=== PATIENT | female | born 1930 | race Caucasian/White ===

== ENCOUNTER 2017-08-27 17:38 | Emergency (ER) | payer OTHER ==
[2017-08-27] MEDS ORDERED: KETOROLAC 30 MG/ML INJ ONE (19:06)
[2017-08-27] MEDS ORDERED: ONDANSETRON 4 MG/2 ML VIAL ONE (19:06)
[2017-08-27] MEDS ORDERED: DEXAMETHASONE 10 MG/ML VIAL ONE (19:07)
[2017-08-27] MEDS ORDERED: DIAZEPAM 5 MG TABLET ONE (19:08)
[2017-08-27] MEDS ORDERED: FENTANYL CITR 100 MCG/2 ML ONE (19:09)
--- NOTE | 2017-08-27 19:26 | RAD REPORT ---
EXAM DESCRIPTION: CT - Spine Lumbar Wo Con - 08/27/2017 7:09 pm CLINICAL HISTORY: Radiculopathy. COMPARISON: None. TECHNIQUE: Axial noncontrast CT imaging of the lumbar spine was performed with coronal and sagittal re-formatted images. All CT scans are performed using dose optimization technique as appropriate and may include automated exposure control or mA/KV adjustment according to patient size. FINDINGS: No acute lumbar spine fracture seen. No aggressive marrow pattern or malalignment. Paraspinal tissues are normal in thickness. No paraspinal abscess or hematoma seen. Moderate lower lumbar degenerative changes present with severe central canal stenosis suspected at L4 -5. Focal infrarenal aortic aneurysm measuring 3.2 cm is noted. IMPRESSION: No acute lumbar spine finding. Severe central canal stenosis suspected at L4-5.
[2017-08-27 19:38] LABS: Absolute Monocytes 0.7 K/uL (0.1-1.3); Absolute Neutrophil 7.2 K/uL (1.8-8.0); Basophils % 0.2 % (0-1.3); Eosinophils % 1.3 % (0-4.4); Hematocrit 34.9 % (36.0-45.0); Lymphocytes % 19.7 % (15.3-44.8); MCH 31.6 pg (27.0-35.0); MPV 8.3 fL (7.6-11.3); Monocytes % 6.5 % (3.3-12.3); RBC Red Blood Cell Count 3.84 M/uL (3.86-4.86)
[2017-08-27 19:45] LABS: Potassium 3.8 mEq/L (3.6-5.0)
[2017-08-27 19:49] LABS: Albumin 3.6 g/dL (3.2-5.5); Bilirubin Total 0.5 mg/dL (0.3-1.2)
--- NOTE | 2017-08-27 20:06 | EDPHYS ---
Physician Documentation [facility] Name: Annabelle Pena Age: 86 yrs Sex: Female : 1930 Arrival Date: 08/27/2017 Time: 17:41 Bed 16 Private MD: out of town, doctor ED Physician Benjamin Montalvo HPI: 08/27 19:00 This 86 yrs old Female presents to ER via Ambulatory with complaints of Back harry Pain, Nausea. 19:00 The patient presents with pain that is acute. The symptoms are located in the low back. harry Onset: The symptoms/episode began/occurred 2 day(s) ago. The pain radiates to the right low back. Associated signs and symptoms: The patient has no apparent associated signs or symptoms. The problem was sustained from unknown cause. Modifying factors: The patient symptoms are alleviated by remaining still, rest. Severity of symptoms: At their worst the symptoms were. The patient has not experienced similar symptoms in the past. Historical: - Allergies: 17:58 No Known Allergies; ch - Home Meds: 17:58 momantine hcl 10 mg once daily [Active]; atorvastatin 20 mg oral tab 1 tab once daily [Active]; levothyroxine 75 mcg tab 1 tab once daily [Active]; Plavix 75 mg Oral tab 1 tab once daily [Active]; duloxetine 60 mg oral cpDR 1 cap once daily [Active]; trazodone 100 mg Oral tab 1 tab nightly [Active]; - PMHx: 17:58 Hypothyroidism; Hyperlipidemia; "sleep issues"; Myocardial infarction; ch - PSHx: 17:58 Heart stents; two stents in heart; 17:59 Appendectomy; carpel tunnel; tumor removed from ovary; - Immunization history:: Adult Immunizations up to date. - Social history:: Smoking status: Patient/guardian denies using tobacco. - Family history:: not pertinent. ROS: 19:00 Constitutional: Negative for fever, chills, and weight loss, Eyes: Negative for injury, harry pain, redness, and discharge, ENT: Negative for injury, pain, and discharge, Neck: Negative for injury, pain, and swelling, Cardiovascular: Negative for chest pain, palpitations, and edema, Respiratory: Negative for shortness of breath, cough, wheezing, and pleuritic chest pain, Abdomen/GI: Negative for abdominal pain, nausea, vomiting, diarrhea, and constipation, : Negative for injury, bleeding, discharge, and swelling, MS/Extremity: Negative for injury and deformity, Skin: Negative for injury, rash, and discoloration, Neuro: Negative for headache, weakness, numbness, tingling, and seizure, Psych: Negative for depression, anxiety, suicide ideation, homicidal ideation, and hallucinations, Allergy/Immunology: Negative for hives, rash, and allergies, Endocrine: Negative for neck swelling, polydipsia, polyuria, polyphagia, and marked weight changes, Hematologic/Lymphatic: Negative for swollen nodes, abnormal bleeding, and unusual bruising. 19:00 Back: Positive for decreased range of motion, pain at rest, pain with movement, radiated pain, of the lumbar area and right low back. 19:03 Skin: Negative for rash. harry Exam: 19:00 Constitutional: This is a well developed, well nourished patient who is awake, alert, harry and in no acute distress. Head/Face: Normocephalic, atraumatic. Eyes: Pupils equal round and reactive to light, extra-ocular motions intact. Lids and lashes normal. Conjunctiva and sclera are non-icteric and not injected. Cornea within normal limits. Periorbital areas with no swelling, redness, or edema. ENT: Nares patent. No nasal discharge, no septal abnormalities noted. Tympanic membranes are normal and external auditory canals are clear. Oropharynx with no redness, swelling, or masses, exudates, or evidence of obstruction, uvula midline. Mucous membranes moist. Neck: Trachea midline, no thyromegaly or masses palpated, and no cervical lymphadenopathy. Supple, full range of motion without nuchal rigidity, or vertebral point tenderness. No Meningismus. Chest/axilla: Normal chest wall appearance and motion. Nontender with no deformity. No lesions are appreciated. Cardiovascular: Regular rate and rhythm with a normal S1 and S2. No gallops, murmurs, or rubs. Normal PMI, no JVD. No pulse deficits. Respiratory: Lungs have equal breath sounds bilaterally, clear to auscultation and percussion. No rales, rhonchi or wheezes noted. No increased work of breathing, no retractions or nasal flaring. Abdomen/GI: Soft, non-tender, with normal bowel sounds. No distension or tympany. No guarding or rebound. No evidence of tenderness throughout. Female : Normal external genitalia. Skin: Warm, dry with normal turgor. Normal color with no rashes, no lesions, and no evidence of cellulitis. MS/ Extremity: Pulses equal, no cyanosis. Neurovascular intact. Full, normal range of motion. Neuro: Awake and alert, GCS 15, oriented to person, place, time, and situation. Cranial nerves II-XII grossly intact. Motor strength 5/5 in all extremities. Sensory grossly intact. Cerebellar exam normal. Normal gait. Psych: Awake, alert, with orientation to person, place and time. Behavior, mood, and affect are within normal limits. 19:00 Back: pain, that is mild, ROM is painful, normal spinal alignment noted, CVA tenderness, is absent, vertebral tenderness, is not appreciated, muscle spasm, is appreciated in the left low back and right low back. Vital Signs: 17:59 BP 136 / 86; Pulse 74; Resp 18; Temp 97.7; Pulse Ox 99% on R/A; Weight 63.5 kg; Height ch 5 ft. 2 in. (157.48 cm); Pain 9/10; 19:24 BP 143 / 60; Pulse 70; Resp 17; Pulse Ox 98% on R/A; bs1 21:13 BP 152 / 48; Pulse 70; Resp 17; Temp 98(O); Pulse Ox 100% on R/A; Pain 5/10; bs1 17:59 Body Mass Index 25.61 (63.50 kg, 157.48 cm) [facility]: 18:24 Patient medically screened. [facility] 19:03 Data reviewed: vital signs, nurses notes, lab test result(s), EKG, radiologic studies, [facility] CT scan. 08/27 18:55 Order name: CBC with Diff; Complete Time: 19:54 [facility] 08/27 18:55 Order name: Comprehensive Metabolic Panel; Complete Time: 19:54 [facility] 08/27 18:55 Order name: Urine Culture [facility] 08/27 18:55 Order name: CT Lumbar Spine Wo Con; Complete Time: 19:33 [facility] 08/27 20:10 Order name: Urine Dipstick--Ancillary (enter results) em1 08/27 18:55 Order name: Urine Dipstick-Ancillary (obtain specimen); Complete Time: 20:09 harry Administered Medications: 19:28 Drug: TORadol 30 mg Route: IVP; Site: left upper arm; bs1 21:05 Follow up: Response: No adverse reaction bs1 19:28 Drug: fentaNYL (PF) 25 mcg Route: IVP; Site: left upper arm; bs1 21:04 Follow up: Response: No adverse reaction bs1 19:28 Drug: Zofran 4 mg Route: IVP; Site: left upper arm; bs1 21:04 Follow up: Response: No adverse reaction bs1 19:28 Drug: Decadron - Dexamethasone 10 mg Route: IVP; Site: left upper arm; bs1 21:04 Follow up: Response: No adverse reaction bs1 19:30 Drug: Valium 2 mg Route: PO; bs1 21:03 Follow up: Response: No adverse reaction bs1 20:26 Drug: fentaNYL (PF) 25 mcg Route: IVP; Site: left upper arm; bs1 21:04 Follow up: Response: No adverse reaction bs1 20:58 Drug: Rocephin - (cefTRIAXone) 1 grams Route: IVPB; Infused Over: 30 mins; Site: left bs1 upper arm; 21:02 Follow up: IV Status: Completed infusion bs1 20:58 Drug: Cipro 500 mg Route: PO; bs1 21:03 Follow up: Response: No adverse reaction bs1 Disposition: 08/27/17 20:05 Discharged to Home. 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 - Condition is Stable. - Discharge Instructions: Back Pain, Adult, Chronic Back Pain, Musculoskeletal Pain, Sciatica, Back Injury Prevention, [id number], Back Pain, Adult, [id number]. - Prescriptions for Tylenol- Codeine #3 300-30 mg Oral Tablet - take 1 tablet by ORAL route every 4 days As needed; 20 tablet. Valium 2 mg Oral Tablet - take 1 tablet by ORAL route every 8 hours As needed; 20 tablet. Medrol (Ben) 4 mg Oral Tablets, Dose Pack - take 1 tablet by ORAL route as directed - follow package instructions; 1 packet. Motrin IB 200 mg Oral Tablet - take 1 tablet by ORAL route every 6 hours As needed as needed with food; 20 tablet. Cipro 250 mg Oral Tablet - take 1 tablet by ORAL route every 12 hours; 14 tablet. - Medication Reconciliation Form, Thank You Letter, Antibiotic Education, Prescription Opioid Use form. - Follow up: Private Physician; When: 2 - 3 days; Reason: Recheck today's complaints, Continuance of care, Re-evaluation by your physician. Follow up: Ulysses Harvey; When: 2 - 3 days; Reason: Recheck today's complaints, Re-evaluation by your physician. Follow up: Chandana Bullard; When: 5 - 6 days; Reason: Recheck today's complaints, Re-evaluation by your physician. - Problem is new. - Symptoms have improved. Signatures: Dispatcher [employer] EDShani Gaspar, RN RN Benjamin Madrid MD MD cha Salazar, Brittany RN RN bs1
--- NOTE | 2017-08-27 20:06 | ER ---
Nurse's Notes [facility] Name: Annabelle Pena Age: 86 yrs Sex: Female : 1930 Arrival Date: 08/27/2017 Time: 17:41 Bed 16 Private MD: out of town, doctor Diagnosis: Low back pain;Sciatica, right side;Spinal stenosis, lumbar region;Aneurysm of aorta in diseases classified elsewhere-3.4cm, infrarenal;Cystitis Presentation: 08/27 17:52 Presenting complaint: Patient states: R sided "siatica pain" for the past week. hurts to walk now. Transition of care: patient was not received from another setting of care. Onset of symptoms was August 20, 2017. Initial Sepsis Screen: Does the patient meet any 2 criteria? No. Patient's initial sepsis screen is negative. Does the patient have a suspected source of infection? No. Patient's initial sepsis screen is negative. Care prior to arrival: ezequiel lloyd. 17:52 Method Of Arrival: Ambulatory 17:52 Acuity: RAQUEL 4 Triage Assessment: 17:59 General: Appears in no apparent distress. uncomfortable, Behavior is calm, cooperative, ch appropriate for age. Pain: Complains of pain in right gluteus ghazala Pain radiates to right leg. Musculoskeletal: Capillary refill < 3 seconds, in bilateral fingers. toes. Historical: - Allergies: 17:58 No Known Allergies; - Home Meds: 17:58 momantine hcl 10 mg once daily [Active]; atorvastatin 20 mg oral tab 1 tab once daily [Active]; levothyroxine 75 mcg tab 1 tab once daily [Active]; Plavix 75 mg Oral tab 1 tab once daily [Active]; duloxetine 60 mg oral cpDR 1 cap once daily [Active]; trazodone 100 mg Oral tab 1 tab nightly [Active]; - PMHx: 17:58 Hypothyroidism; Hyperlipidemia; "sleep issues"; Myocardial infarction; - PSHx: 17:58 Heart stents; two stents in heart; ch 17:59 Appendectomy; carpel tunnel; tumor removed from ovary; ch - Immunization history:: Adult Immunizations up to date. - Social history:: Smoking status: Patient/guardian denies using tobacco. - Family history:: not pertinent. Screenin:06 Abuse screen: Denies threats or abuse. Nutritional screening: No deficits noted. rb1 Tuberculosis screening: No symptoms or risk factors identified. Fall Risk None identified. Assessment: 18:06 General: Appears uncomfortable, Behavior is calm, cooperative, Denies fever. Pain: rb1 Complains of pain in right low back Pain radiates to right leg Pain currently is 10 out of 10 on a pain scale. Pain began a week and half ago. Neuro: Level of Consciousness is awake, alert, obeys commands, Oriented to person, place, time, situation. Cardiovascular: Capillary refill < 3 seconds is brisk in bilateral fingers. Respiratory: Airway is patent Respiratory effort is even, unlabored, Respiratory pattern is regular, symmetrical. GI: No signs and/or symptoms were reported involving the gastrointestinal system. : No signs and/or symptoms were reported regarding the genitourinary system. Derm: Skin is pink, warm \\T\\ dry. Musculoskeletal: Range of motion: intact in all extremities. 19:10 Reassessment: Report received from TAYLOR Otto. bs1 19:10 General: Appears uncomfortable, Behavior is cooperative, anxious. Pain: Complains of bs1 pain in lumbar area and right low back and right leg and buttocks and right gluteus ghazala Pain radiates to right leg. Neuro: Level of Consciousness is awake, alert, obeys commands, Oriented to person, place, time, situation. Cardiovascular: Denies chest pain, lightheadedness, palpitations, shortness of breath, Heart tones S1 S2 Capillary refill < 3 seconds. Respiratory: Airway is patent Respiratory effort is even, unlabored, Respiratory pattern is regular, symmetrical, Breath sounds are clear bilaterally. GI: No signs and/or symptoms were reported involving the gastrointestinal system. Derm: Skin is pink, warm \\T\\ dry. Musculoskeletal: Range of motion: limited in right leg. 20:00 Reassessment: No changes from previously documented assessment. Patient and/or family bs1 updated on plan of care and expected duration. Pain level reassessed. Patient is alert, oriented x 3, equal unlabored respirations, skin warm/dry/pink. Patient c/o pain in back/right leg. 21:12 Reassessment: Patient appears in no apparent distress at this time. Patient and/or bs1 family updated on plan of care and expected duration. Pain level reassessed. Patient is alert, oriented x 3, equal unlabored respirations, skin warm/dry/pink. Patient states feeling better. Vital Signs: 17:59 BP 136 / 86; Pulse 74; Resp 18; Temp 97.7; Pulse Ox 99% on R/A; Weight 63.5 kg; Height 5 ft. 2 in. (157.48 cm); Pain 9/10; 19:24 BP 143 / 60; Pulse 70; Resp 17; Pulse Ox 98% on R/A; bs1 21:13 BP 152 / 48; Pulse 70; Resp 17; Temp 98(O); Pulse Ox 100% on R/A; Pain 5/10; bs1 17:59 Body Mass Index 25.61 (63.50 kg, 157.48 cm) ED Course: 17:41 Patient arrived in ED. mr 17:42 out of town, doctor is Private Physician. mr 17:54 Triage completed. 17:59 Arm band placed on left wrist. Patient placed in an exam room, on a stretcher. 18:06 Clarita Morin, TAYLOR is Primary Nurse. rb1 18:06 Patient has correct armband on for positive identification. Bed in low position. Call rb1 light in reach. pt. prefers to sit in the wheelchair. Pulse ox on. NIBP on. 18:24 Benjamin Montalvo MD is Attending Physician. [facility] 19:00 Report given to TAYLOR Hernandez. rb1 19:[address] via wheelchair. sw 19:08 CT completed. Patient tolerated procedure well. Patient moved back from CT. sw 19:10 CT Lumbar Spine Wo Con In Process Unspecified. EDMS 20:05 Ulysses Harvey MD is Referral Physician. harry 20:05 Chandana Bullard MD is Referral Physician. harry 21:12 No provider procedures requiring assistance completed. IV discontinued, bleeding bs1 controlled, No redness/swelling at site. Pressure dressing applied. Administered Medications: 19:28 Drug: TORadol 30 mg Route: IVP; Site: left upper arm; bs1 21:05 Follow up: Response: No adverse reaction bs1 19:28 Drug: fentaNYL (PF) 25 mcg Route: IVP; Site: left upper arm; bs1 21:04 Follow up: Response: No adverse reaction bs1 19:28 Drug: Zofran 4 mg Route: IVP; Site: left upper arm; bs1 21:04 Follow up: Response: No adverse reaction bs1 19:28 Drug: Decadron - Dexamethasone 10 mg Route: IVP; Site: left upper arm; bs1 21:04 Follow up: Response: No adverse reaction bs1 19:30 Drug: Valium 2 mg Route: PO; bs1 21:03 Follow up: Response: No adverse reaction bs1 20:26 Drug: fentaNYL (PF) 25 mcg Route: IVP; Site: left upper arm; bs1 21:04 Follow up: Response: No adverse reaction bs1 20:58 Drug: Rocephin - (cefTRIAXone) 1 grams Route: IVPB; Infused Over: 30 mins; Site: left bs1 upper arm; 21:02 Follow up: IV Status: Completed infusion bs1 20:58 Drug: Cipro 500 mg Route: PO; bs1 21:03 Follow up: Response: No adverse reaction bs1 Outcome: 20:05 Discharge ordered by MD. mcdonald 21:12 Discharged to home ambulatory, with family. bs1 21:12 Condition: stable 21:12 Discharge instructions given to patient, Instructed on discharge instructions, follow up and referral plans. medication usage, Demonstrated understanding of instructions, follow-up care, medications, Prescriptions given X 4. 21:24 Patient left the ED. bs1 Signatures: Dispatcher [employer] EDMS Shani Ortiz, RN Benjamin Merino ch, MD MD cha Rivera, Maria mr MelvinRachel Rebecca, RN RN rb1 Salazar, Brittany, RN RN bs1 Corrections: (The following items were deleted from the chart) 19:09 19:01 Patient moved to [place] via stretcher. gianfranco medel
[2017-08-27] MEDS ORDERED: CIPROFLOXACIN HCL 500 MG TAB ONE (20:51)
[2017-08-27] MEDS ORDERED: CEFTRIAXONE/SWI 1gm 1 GM/10 ML SYR ONE (20:52)
[2017-08-27 20:53] LABS: Urine Blood NEGATIVE (NEG); Urine Glucose NEGATIVE (NEG); Urine Protein NEGATIVE (NEG)
[2017-08-27 21:42] VITALS: BP 152/48; TEMP 98; O2SAT 100
== END 2017-08-27 21:24 | disposition home or self-care (01) ==
LOC: ER 17:38
DX: M54.31 Sciatica, right side (principal); M48.061 Spinal stenosis, lumbar region without neurogenic claudication; N30.90 Cystitis, unspecified without hematuria; I79.0 Aneurysm of aorta in diseases classified elsewhere; E78.5 Hyperlipidemia, unspecified; E03.9 Hypothyroidism, unspecified; I25.2 Old myocardial infarction; Z79.01 Long term (current) use of anticoagulants; Z95.818 Presence of other cardiac implants and grafts
CPT/HCPCS: 36415; 72131; 80053; 81003; 85025; 87086; 87088; 96374; 96375; 99284; J0696; J1100; J2405; J3010

== ENCOUNTER 2017-11-08 08:13 | Emergency (ER) | payer OTHER ==
--- OUTSIDE RECORDS SUMMARY | 2017-11-08 08:16 | XMS REPORT | Continuity of Care Document ---
:1930 Author Organization Interface Problems Problem Status Onset Classification Date Comments Source Date Reported Encounter for 07/06/19 10/04/2017 OPID The screening 18 [place] mammogram for malignant neoplasm of breast Z13.820 - Active 06/20/19 OPID The ENCOUNTER FOR 18 [place] SCREENING FOR OS Discharge 08/11/19 08/12/2014 The Diagnosis: Dizzy 15 [place] NAUSEA/ DIZZINESS Active 08/10/19 The 15 [place] Encounter for 10/04/2017 OPID The screening for [place] osteoporosis Loss of memory Active Problem 10/04/2017 Medical Group, OPID [place] Dysuria Active Problem 10/04/2017 Medical Group, OPID [place] History of CVA Active Problem 10/04/2017 Medical (<span Group, ID="[id number]" OPID The >Confirmed</span> [place] ) History of [place] Active Problem 10/04/2017 Medical (<span Group, ID="[id number]" OPID The >Confirmed</span> [place] ) Hyperlipemia Active Problem 10/04/2017 Medical Group, OPID [place] Hypothyroidism Active Problem 10/04/2017 Medical Group, OPID [place] Insomnia Active Problem 10/04/2017 Medical Group, OPID [place] Mitral valve Active Problem 10/04/2017 Medical disease Group, OPID [place] Psoriasis Active Problem 10/04/2017 Medical Group, OPID [place] Medications Medication Details Route Status Patient Ordering Order Source Instructions Provider Date predniSONE 20 mg 20 mg=1 tab, Active 08/12/ Medical oral tablet PO, Daily, X 2018 Group 5 day, # 5 tab, 0 Refill(s), Pharmacy: [facility]/pharmacy #[id number] Ciprofloxacin 500 mg=1 Active 08/12/ Medical 500 MG Oral tab, PO, 2018 Group Tablet [Cipro] Q12H, X 7 day, # 14 tab, 0 Refill(s), Pharmacy: [facility]/pharmacy #[id number] Ciprofloxacin 3 2 drp, BOTH No Longer Medical MG/ML Ophthalmic EYES, Q4H, X Active 2018 Group Solution 10 day, # 5 mL, 0 Refill(s), Pharmacy: [facility]/pharmacy #[id number] Trazodone See Active Medical Hydrochloride Instructions 2018 Group 100 MG Oral , TAKE 1 Tablet TABLET AT BEDTIME, # 90 tab, 1 Refill(s), Pharmacy: [facility] memantine 10 mg 10 mg=1 tab, Active Medical oral tablet PO, BID, # 2018 Group 180 tab, 0 Refill(s), Pharmacy: [facility] Mail Delivery levothyroxine 75 See Active Medical mcg (0.075 mg) Instructions 2018 Group oral tablet , TAKE 1 TABLET BY MOUTH EVERY DAY, # 90 tab, 1 Refill(s), Pharmacy: [facility] DULoxetine 60 mg 60 mg=1 cap, Active Medical oral delayed PO, Daily, # 2018 Group release capsule 90 cap, 1 Refill(s), Pharmacy: [facility] Mail Delivery clopidogrel 75 See Active Medical mg oral tablet Instructions 2018 Group , TAKE 1 TABLET BY MOUTH EVERY DAY, # 90 tab, 1 Refill(s), Pharmacy: [facility] Mail Delivery atorvastatin 20 See Active Medical mg oral tablet Instructions 2018 Group , TAKE 1 TABLET AT BEDTIME, # 90 tab, 1 Refill(s), Pharmacy: [facility] Delivery Ondansetron 4 MG 4 mg=1 tab, Active The Disintegrating PO, BID, PRN 2014[place] Tablet [Zofran] Nausea and Vomiting, Dissolve tab under tongue, # 10 tab, 0 Refill(s)Spe cial Instructions : Dissolve tab under tongue Meclizine 12.5 mg=1 Active The Hydrochloride tab, PO, 2014[place] 12.5 MG Oral TID, PRN Tablet Dizziness, # [Antivert] 30 tab, 0 Refill(s) Zofran ODT 4 mg, 1 tab, Inactive The Route: PO, 2014 Drug form: TABDIS, ONCE, Dosing Weight 62.273, kg, Priority: STAT, Start date: 08/10/14 0:14:00, Stop date: 08/10/14 0:14:00Notes : (Same as: Zofran ODT) Meclizine 25 mg, 1 Inactive The tab, Route: 2014 [place] PO, Drug form: TAB, ONCE, Dosing Weight 62.273, kg, Priority: STAT, Start date: 08/10/14 0:13:00, Stop date: 08/10/14 0:13:00Notes : (Same as: Antivert) Meclizine 25 mg, 1 No Longer The tab, Route: Active 2014 [place] PO, Drug form: TAB, ONCE, Dosing Weight 62.273, kg, Priority: STAT, Start date: 08/09/14 23:11:00, Stop date: 08/09/14 23:11:00Note s: (Same as: Antivert) Zofran 4 mg, 2 mL, No Longer The Route: IVP, Active 2014 [place] Drug form: INJ, ONCE, Dosing Weight 62.273, kg, Priority: STAT, Start date: 08/09/14 23:11:00, Stop date: 08/09/14 23:11:00Note s: (Same as: Zofran) MEDICATION WASTE Product Size: 4 mg Product Wasted: ___ mg Allergies, Adverse Reactions, Alerts Substance Category Reaction Severity Reaction Status Date Comments Source type Reported NKDA Assertion Drug Active OPID allergy [place] Immunizations Immunization Date Given Site Status Last Updated Comments Source Results Order Name Results Value Reference Date Interpretation Comments Source Range Bone Bone Density 06/28 - OPID Density DXA Dual - The DXA Dual [facility] BONE DENSITY ASSESSMENT: 06/28/2017 Read by: Tamanna Walker MD Dictated Date/time: 07/02/17 15:32 Electronically Signed by: Tamanna Walker MD 07/02/17 15:32 FINAL REPORT CLINICAL DATA: Z13.820/Screening For Osteoporosis. Z13.820/Screening For Osteoporosis Joel Pena 1930 RISK FACTORS: race. FINDINGS: Bone density evaluation was performed 06/28/2017 on the right femur neck using a Hologic unit. The BMD average for the exam is 0.849 g/cm2. The T-score is 0.01 and the Z-score is 2.50. This matches th e World Health Organization's criteria for normal bone density and places the patient within normal limits of fracture risk. An additional bone density evaluation was performed 06/28/2017 on the left femur neck using a Hologic unit. The BMD average for the exam is 0.871 g/cm2. The T-score is 0.20 and the Z-score is 2.70. Th is matches the World Health Organization's criteria for normal bone density and places the patient within normal limits of fracture risk. An additional bone density evaluation was performed 06/28/2017 on the right total femur area using a Hologic unit. The BMD average for the exam is 0.980 g/cm2. The T-score is 0.30 and the Z-score is 2. 60. This matches the World Health Organization's criteria for normal bone density and places the patient within normal limits of fracture risk. An additional bone density evaluation was performed 06/28/2017 on the left total femur area using a Hologic unit. The BMD average for the exam is 0.871 g/ cm2. The T-score is 0.20 and the Z-score is 2.7 0. This matches the World Health Organization's criteria for normal bone density and places the patient within normal limits of fracture risk. An additional bone density evaluation was performed 06/28/2017 on the AP L1 -L3 region of spine using a Hologic unit. The BMD average for the exam is 0.904 g/cm2. The T-score is -1.00 and the Z-score is 1.80. This matches the World Health Organization's criteria for normal bone density and places the patient within normal limits of fracture risk. L4 vertebral body was excluded as statistical outlier. IMPRESSION: BONE DENSITY WITHIN NORMAL LIMITS Patient is at normal risk for fracture. The FRAX (Fracture Risk Assessement Tool) was not reported because all T- scores for spine total, hip total, and femoral neck are at or above -1, within normal range. Patient consult w/primary care provider is recommended. This exam was interpreted at [id number] at [facility]. Tamanna mendoza/rula:07/02/2017 15:32:35 [place] Grader(s): Shanna Sahu [facility] - OP Imaging Breast Breast Mammo 06/28 - OPID Mammo Scrn Scrn APRIL /2017 - The APRIL incl incl CAD MA [place] CAD MA Read by: Leobardo Saravia Dictated Date/time: 07/01/17 09:46 BILATERAL DIGITAL SCREENING MAMMOGRAM WITH CAD: 06/28/2017 Electronically Signed by: Leobardo Saravia 07/01/17 09 :46 FINAL REPORT CLINICAL: Screening/* Joel Pena O. 1930. Current study was evaluated with a Computer Aided Detection (CAD) system. COMPARISON:No prior exams were available for comparison. TECHNIQUE: Mammographic views were obtained using digital acquisition. Current study was also evaluated with a Computer Aided Detection (CAD) system. FINDINGS: The tissue of both breasts is heterogeneously dense, which could obscure detection of small masses. There are benign calcifications in the right breast. There also are benign calcifications and intramammary nodes in the left breast. No significant masses, calcifications, or other findings are seen in either breast. IMPRESSION: BENIGN RECOMMENDATION:There is no mammographic evidence of malignancy. A 1 year screening mammogram is recommended.(06/29/2018) [id number] Professional services are provided by the [facility]. Leobardo Saravia M.D. dt/penrad:07/01/2017 09:46:47 [place] Grader(s): Michelle Maza RT(R), [facility] - OP Imaging letter sent: BI-RADS 1/2 Dense Mammogram BI-RADS: 2 Benign URINE AND UA <=1.0 0.1 - 1.0 08/10 The STOOL Urobilinogen mg/dL /2014 [place] URINE AND UA Mucus Few /LPF None Seen 08/10 The STOOL /LPF /2014 [place] URINE AND UA WBC 2 /HPF 0 - 5 08/10 The STOOL /2014 [place] URINE AND UA RBC 2 /HPF 0 - 2 08/10 The STOOL /2014 [place] URINE AND UA Turbidity Clear Clear 08/10 The STOOL /2014 [place] (08/10/14 1:44 AM) URINE AND UA Bili Negative Negative 08/10 The STOOL [place] *NA* (08/10/14 1:44 AM) URINE AND UA Leuk Est Small Negative 08/10 The STOOL [place] *ABN* (08/10/14 1:44 AM) URINE AND UA Sq Epi Occasional Few /LPF 08/10 The STOOL /LPF /2014 [place] URINE AND UA Blood Negative Negative 08/10 The STOOL [place] (08/10/14 1:44 AM) URINE AND UA Nitrite Negative Negative 08/10 The STOOL [place] (08/10/14 1:44 AM) URINE AND UA Color Yellow Yellow 08/10 The STOOL [place] *NA* (08/10/14 1:44 AM) URINE AND UA Protein Negative Negative 08/10 The STOOL mg/dL mg/dL [place] URINE AND UA pH 6.5 5.0 - 8.0 08/10 The [place] URINE AND UA Ketones Negative Negative 08/10 The STOOL mg/dL mg/dL /2014 [place] URINE AND UA Glucose Negative Negative 08/10 The STOOL mg/dL mg/dL [place] URINE AND UA Spec Grav 1.009 <=1.030 08/10 The STOOL [place] CARDIAC Total CK 95 unit/L 12 - 191 08/10 The [place] CARDIAC Troponin-I null 0.00 - 08/10 The ENZYMES 0.40 [place] CARDIAC CK MB 0.7 ng/mL 0.5 - 3.6 08/10 The ENZYMES [place] CARDIAC CK MB Index 0.7 0.0 - 2.5 08/10 The ENZYMES [place] CHEM PANEL Magnesium 1.9 mg/dL 1.8 - 2.4 08/10 The Lvl [place] CHEM PANEL Phosphorus 3.5 mg/dL 2.5 - 4.5 08/10 The [place] CHEM PANEL Lipase Lvl 209 unit/L 73 - 393 08/10 The [place] CHEM PANEL Ammonia 21.0 <=45.0 08/10 The umol/L uMol/L [place] CHEM PANEL Lactic Acid 0.5 mMol/L 0.5 - 2.2 08/10 MH The Lvl [place] CHEM PANEL eGFR 68 04/14 1Result Comment: The eGFR is calculated using the CKD-EPI formula. In most young, healthy individuals the eGFR will be >90 mL/ min/1.73m2. The eGFR declines with age. An eGFR of 60-89 may be normal in The mL/min/1.7 some populations, particularly the elderly, for whom the CKD-EPI formula has not been extensively validated. Use of the eGFR is not recommended in the following populations: [place] 3m2 Individuals with unstable creatinine concentrations, including patients and those with serious co-morbid conditions. Patients with extremes in muscle mass or diet. The data above are obtained from the National Kidney Disease Education Program (NKDEP) which additionally recommends that when the eGFR is used in patients with extremes of body mass index for purposes of drug dosing, the eGFR should be multiplied by the estimated BMI. CHEM PANEL Alk Phos 54 unit/L 39 - 136 08/10 [place] CHEM PANEL Bili Total 0.3 mg/dL 0.2 - 1.3 08/10 [place] CHEM PANEL B/C Ratio 20 6 - 25 08/10 [place] CHEM PANEL AGAP 9.8 meq/L 10.0 - 08/10 The 20.0 [place] CHEM PANEL A/G Ratio 1.0 0.7 - 1.6 08/10 [place] CHEM PANEL Globulin 3.2 g/dL 2.0 - 4.0 08/10 [place] CHEM PANEL Glucose Lvl 103 mg/dL 70 - 99 08/10 2Interpretive Data: Adult reference range values reflect the clinical guidelines of the [place] [employer]. [place] CHEM PANEL Creatinine 0.8 mg/dL 0.5 - 1.4 08/10 The Lvl [place] CHEM PANEL Chloride Lvl 107 meq/L 95 - 109 08/10 [place] CHEM PANEL CO2 25 meq/L 24 - 32 08/10 [place] CHEM PANEL Calcium Lvl 8.5 mg/dL 8.5 - 10.5 08/10 [place] CHEM PANEL AST 16 unit/L 0 - 37 08/10 [place] CHEM PANEL BUN 16 mg/dL 7 - 22 08/10 [place] CHEM PANEL Potassium 3.8 meq/L 3.5 - 5.1 08/10 The Lvl [place] CHEM PANEL Sodium Lvl 138 meq/L 135 - 145 08/10 The [place] CHEM PANEL Albumin Lvl 3.3 g/dL 3.5 - 5.0 08/10 The [place] CHEM PANEL Total 6.5 g/dL 6.4 - 8.4 08/10 The Protein [place] CHEM PANEL ALT 16 unit/L 0 - 65 08/10 The [place] HEMATOLOGY Basophils # 0.0 K/CMM 0.0 - 0.2 08/10 The [place] HEMATOLOGY Lymphocytes 1.5 K/CMM 1.0 - 5.5 08/10 The # [place] HEMATOLOGY Eosinophils 0.1 K/CMM 0.0 - 0.5 08/10 The # [place] HEMATOLOGY Monocytes # 0.6 K/CMM 0.0 - 0.8 08/10 The [place] HEMATOLOGY Segs-Bands # 6.3 K/CMM 1.5 - 8.1 08/10 The [place] HEMATOLOGY Segs 74.3 % 45.0 - 08/10 The 75.0 [place] HEMATOLOGY Monocytes 6.6 % 2.0 - 12.0 08/10 The [place] HEMATOLOGY Lymphocytes 17.6 % 20.0 - 08/10 The 40.0 [place] HEMATOLOGY Basophils 0.4 % 0.0 - 1.0 08/10 The [place] HEMATOLOGY Eosinophils 1.1 % 0.0 - 4.0 08/10 The [place] HEMATOLOGY MPV 7.9 fL 7.4 - 10.4 08/10 The [place] HEMATOLOGY Platelet 136 K/CMM 133 - 450 08/10 The [place] HEMATOLOGY Hct 38.3 % 36.0 - 08/10 The 48.0 [place] HEMATOLOGY MCV 92.7 fL 80.0 - 08/10 The 98.0 [place] HEMATOLOGY MCHC 33.4 g/dL 32.0 - 08/10 The 36.0 [place] HEMATOLOGY RDW 13.5 % 11.5 - 08/10 The 14. [place] HEMATOLOGY Hgb 12.8 g/dL 12.0 - 08/10 The 16.0 [place] HEMATOLOGY MCH 31.0 pg 27.0 - 08/10 The 31.0 [place] HEMATOLOGY RBC 4.13 M/CMM 4.20 - 08/10 The 5.40 [place] HEMATOLOGY WBC 8.5 K/CMM 3.7 - 10.4 08/10 [place] Vital Signs Vital Sign Value Date Comments Source Weight 64.545 08/12/2017 Medical Group Height 160.02 cm 08/12/2017 Medical Group BMI Calculated 25.21 08/12/2017 Medical Group Systolic (mm Hg) 143 08/12/2017 Medical Group Diastolic (mm Hg) 76 08/12/2017 Medical Group Heart Rate 71 08/12/2017 Medical Group Temperature Oral (F) 97.6 F 08/12/2017 Medical Group Weight 63.636 06/14/2017 Medical Group BMI Calculated 25.66 06/14/2017 Medical Group Height 157.48 cm 06/14/2017 Medical Group Temperature Oral (F) 97.8 F 06/14/2017 Medical Group Heart Rate 67 06/14/2017 Medical Group Systolic (mm Hg) 135 06/14/2017 Medical Group Diastolic (mm Hg) 77 06/14/2017 Medical Group Systolic (mm Hg) 168 08/10/2014 [place] Diastolic (mm Hg) 82 08/10/2014 [place] Systolic (mm Hg) 140 08/10/2014 [place] Diastolic (mm Hg) 81 08/10/2014 [place] Respitory Rate 14 08/10/2014 [place] Systolic (mm Hg) 130 08/10/2014 [place] Diastolic (mm Hg) 60 08/10/2014 [place] Respitory Rate 18 08/10/2014 [place] Respitory Rate 19 08/10/2014 [place] Height 157.48 cm 08/10/2014 [place] Weight 62.273 08/10/2014 [place] BMI Calculated 25.11 08/10/2014 [place] Heart Rate 58 08/10/2014 [place] Encounters Location Location Encounter Encounter Reason Attending ADM DC Status Source Details Type Number For Provider Date Date Visit [facility] [id number] [place] 08/10 08/10 [facility] [place] [facility] [place] [facility]2014 [facility] Outpatient [id number] [facility]/28 [facility] [id number] [facility] 02/06 [facility] [place] [facility] [id number] VER[place] 03/29 Active [facility] Outpatient [id number] VER[place] 05/17 Active [facility] Outpatient [id number] VERONA 09/06 Active [facility] [place] Outpatient [id number] VER[place] 09/20 Active [facility] [place] Outpatient [id number] JOY 10/11 Active [facility] [place] Outpatient [id number] VERONA 11/07 Active [facility] [place] Outpatient [id number] VERONA 06/14 Active [facility] Outpatient [id number] [place] 06/14 06/15 Primary [place] /2017 [facility] Outpatient [id number] [place] 06/28 06/29 OPID Outpatient [place] [facility] s Outpatient [id number] EMI 08/04 Active [facility] [place] Outpatient [id number] VER[place] 08/12 [facility] [id number] [place] 08/12 08/13 Primary [place] /2017 [facility] Phone [id number] 08/12 08/14 MH Primary Message /2017 [facility] Phone [id number] 09/03 09/05 MH Primary Message /2017 Medical Care [facility] Phone [id number] 09/05 09/07 Primary Message /2017 Medical Care [facility] Procedures Procedure Code Date Perfomer Comments Source section [id number] Medical Group Hysterectomy [id number] Medical Group section [id number] OPID [place] Hysterectomy [id number] OPID [place]
--- OUTSIDE RECORDS SUMMARY | 2017-11-08 08:17 | XMS REPORT | Summary of Care ---
:1930 Author Organization [facility] Primary Care [facility] Address [address] [place] [address]- Encounter HQ Juliar_silvestre(FIN) [id number] Date(s): 09/05/17 - 09/06/17 [facility] Care [facility] [address] [place] [address]- [phone] Vital Signs No data available for this section Problem List Condition Effective Dates Status Health Status Informant Loss of memory(Confirmed) Active Dysuria(Confirmed) Active History of CVA (cerebrovascular Active accident)(Confirmed) History of [place] (myocardial Active infarction)(Confirmed) Hyperlipemia(Confirmed) Active Hypothyroidism(Confirmed) Active Insomnia(Confirmed) Active Mitral valve disease(Confirmed) Active Psoriasis(Confirmed) Active Allergies, Adverse Reactions, Alerts Substance Reaction Severity Status NKDA Active Medications No data available for this section Results No data available for this section Immunizations No data available for this section Procedures Procedure Date Related Diagnosis Body Site Status section Completed Hysterectomy Completed Social History Social History Type Response Substance Abuse Use: None. Employment/School Status: Retired. Alcohol Current Smoking Status Never smoker; Exposure to Tobacco Smoke None; Cigarette Smoking Last 365 Days No; Reg Smoking Cessation Counseling No entered on: 08/12/17 Assessment and Plan No data available for this section
--- OUTSIDE RECORDS SUMMARY | 2017-11-08 08:17 | XMS REPORT | Summary of Care ---
:1930 Author Organization [facility] Primary Care [facility] Address [address] [place] [address]- Encounter HQ Juliar_silvestre(FIN) [id number] Date(s): 09/03/17 - 09/04/17 [facility] Care [facility] [address] [place] [address]- [phone] Vital Signs No data available for this section Problem List Condition Effective Dates Status Health Status Informant Loss of memory(Confirmed) Active Dysuria(Confirmed) Active History of CVA (cerebrovascular Active accident)(Confirmed) History of [place] (myocardial Active infarction)(Confirmed) Hyperlipemia(Confirmed) Active Hypothyroidism(Confirmed) Active [...]
--- OUTSIDE RECORDS SUMMARY | 2017-11-08 08:17 | XMS REPORT | Summary of Care ---
:1930 Author Organization [facility] Primary Care [facility] Address [address] [place] [address]- Encounter HQ Juliar_silvestre(FIN) [id number] Date(s): 09/03/17 - 09/04/17 [facility] Care [facility] [address] [place] [address]- [phone] Vital Signs No data available for this section Problem List Condition Effective Dates Status Health Status Informant Loss of memory(Confirmed) Active Dysuria(Confirmed) Active History of CVA (cerebrovascular Active accident)(Confirmed) History of [place] (myocardial Active infarction)(Confirmed) Hyperlipemia(Confirmed) Active Hypothyroidism(Confirmed) Active [...]
--- OUTSIDE RECORDS SUMMARY | 2017-11-08 08:17 | XMS REPORT | Summary of Care ---
:1930 Author Organization [facility] Primary Care [facility] Address [address] [place] [address]- Encounter HQ Sammie(TIMUR) [id number] Date(s): 06/14/17 - 06/14/17 [facility] Primary Care [facility] [address] [place] [address]- [phone] Discharge Disposition: Home or Self Care Attending Physician: Verona Singh MD Vital Signs Most recent to oldest [Reference Range]: 1 Height 157.48 cm (06/14/17 11:42 AM) Temperature Oral [96.4-99.1 DegF] 97.8 DegF (06/14/17 11:42 AM) Blood Pressure [90-140/60-90 mmHg] 135/77 mmHg (06/14/17 11:42 AM) Peripheral Pulse Rate [60-100 bpm] 67 bpm (06/14/17 11:42 AM) Weight 63.636 kg (06/14/17 11:42 AM) Body Mass Index 25.66 m2 (06/14/17 11:42 AM) Problem List Condition Effective Dates Status Health Status Informant Loss of memory(Confirmed) Active Dysuria(Confirmed) Active History of CVA (cerebrovascular Active accident)(Confirmed) History of [place] (myocardial Active infarction)(Confirmed) Hyperlipemia(Confirmed) Active Hypothyroidism(Confirmed) Active Insomnia(Confirmed) Active Mitral valve disease(Confirmed) Active Psoriasis(Confirmed) Active Allergies, Adverse Reactions, Alerts Substance Reaction Severity Status NKDA Active Medications atorvastatin 20 mg oral tablet See Instructions, TAKE 1 TABLET AT BEDTIME, # 90 tab, 1 Refill(s), Pharmacy: [facility] Start Date: 06/14/17 Status: Orderedciprofloxacin ophthalmic 0.3% solution 2 drp, BOTH EYES, Q4H, X 10 day, # 5 mL, 0 Refill(s), Pharmacy: [facility]/pharmacy # [id number] Start Date: 06/14/17 Stop Date: 06/24/17 Status: Completedclopidogrel 75 mg oral tablet See Instructions, TAKE 1 TABLET BY MOUTH EVERY DAY, # 90 tab, 1 Refill(s), Pharmacy[facility] Start Date: 06/14/17 Status: OrderedDULoxetine 60 mg oral delayed release capsule 60 mg=1 cap, PO, Daily, # 90 cap, 1 Refill(s), Pharmacy: [facility] Start Date: 06/14/17 Stop Date: 12/11/17 Status: Orderedlevothyroxine 75 mcg (0.075 mg) oral tablet See Instructions, TAKE 1 TABLET BY MOUTH EVERY DAY, # 90 tab, 1 Refill(s), Pharmacy: [facility] Start Date: 06/14/17 Status: Orderedmemantine 10 mg oral tablet 10 mg=1 tab, PO, BID, # 180 tab, 0 Refill(s), Pharmacy: [facility] Start Date: 06/14/17 Stop Date: 09/12/17 Status: Orderedtrazodone 100 mg oral tablet See Instructions, TAKE 1 TABLET AT BEDTIME, # 90 tab, 1 Refill(s), Pharmacy: [facility] Start Date: 06/14/17 Status: Ordered Results No data available for this section [...]
--- OUTSIDE RECORDS SUMMARY | 2017-11-08 08:17 | XMS REPORT | Summary of Care ---
:1930 Author Organization [facility] Outpatient Imaging [place] Address [address] [place] [address]- Encounter HQ Encntr_alias(FIN) [id number] Date(s): 06/28/17 - 06/28/[address] [facility] Outpatient Imaging [place] [id number] - Encounter Diagnosis Encounter for screening mammogram for malignant neoplasm of breast (Final) - 07/04 Encounter for screening for osteoporosis (Final) - Discharge Disposition: Home or Self Care Attending Physician: Verona Singh MD Vital Signs No data available for this section Problem List Condition Effective Dates Status Health Status Informant Loss of memory(Confirmed) Active Dysuria(Confirmed) Active History of CVA (cerebrovascular Active accident)(Confirmed) History of [place] (myocardial Active infarction)(Confirmed) Hyperlipemia(Confirmed) Active Hypothyroidism(Confirmed) Active [...]
--- OUTSIDE RECORDS SUMMARY | 2017-11-08 08:17 | XMS REPORT | Summary of Care ---
:1930 Author Organization [facility] Primary Care [facility] Address [address] [place] [address]- Encounter HQ Juliar_silvestre(FIN) [id number] Date(s): 08/12/17 - 08/13/17 [facility] Care [facility] [address] [place] [address]- [phone] Vital Signs No data available for this [...]
--- OUTSIDE RECORDS SUMMARY | 2017-11-08 08:17 | XMS REPORT | Summary of Care ---
:1930 Author Organization [facility] Primary Care [facility] Address [address] [place] [address]- Encounter HQ Sammie(FIN) [id number] Date(s): 08/12/17 - 08/12/17 [facility] Primary Care [facility] [address] [place] [address]- [phone] Discharge Disposition: Home or Self Care Attending Physician: Verona Singh MD Vital Signs Most recent to oldest [Reference Range]: 1 Height 160.02 cm (08/12/17 11:02 AM) Temperature Oral [96.4-99.1 DegF] 97.6 DegF (08/12/17 11:02 AM) Blood Pressure [90-140/60-90 mmHg] 143/76 mmHg *HI* (08/12/17 11:02 AM) Peripheral Pulse Rate [60-100 bpm] 71 bpm (08/12/17 11:02 AM) Weight 64.545 kg (08/12/17 11:02 AM) Body Mass Index 25.21 m2 (08/12/17 11:02 AM) Problem List Condition Effective Dates Status Health Status Informant Loss of memory(Confirmed) Active Dysuria(Confirmed) Active History of CVA (cerebrovascular Active accident)(Confirmed) History of [place] (myocardial Active infarction)(Confirmed) Hyperlipemia(Confirmed) Active Hypothyroidism(Confirmed) Active Insomnia(Confirmed) Active Mitral valve disease(Confirmed) Active Psoriasis(Confirmed) Active Allergies, Adverse Reactions, Alerts Substance Reaction Severity Status NKDA Active Medications Cipro 500 mg oral tablet 500 mg=1 tab, PO, Q12H, X 7 day, # 14 tab, 0 Refill(s), Pharmacy: [facility]/pharmacy # [id number] Start Date: 08/12/17 Stop Date: 08/19/17 Status: OrderedpredniSONE 20 mg oral tablet 20 mg=1 tab, PO, Daily, X 5 day, # 5 tab, 0 Refill(s), Pharmacy: [facility]/pharmacy # [id number] Start Date: 08/12/17 Stop Date: 08/17/17 Status: Ordered Results No data available for [...]
--- OUTSIDE RECORDS SUMMARY | 2017-11-08 08:17 | XMS REPORT | Summary of Care ---
:1930 Author Organization [facility] Primary Care [facility] Address [address] [place] [address]- Encounter HQ Juliar_silvestre(FIN) [id number] Date(s): 09/05/17 - 09/06/17 [facility] Care [facility] [address] [place] [address]- [phone] Vital Signs No data available for this [...]
--- OUTSIDE RECORDS SUMMARY | 2017-11-08 08:17 | XMS REPORT | Summary of Care ---
:1930 Author Encounter SYLVESTER Cochran(TIMUR) [id number] Date(s): 08/09/14 - 08/10/14 [facility] [address] [place] [address]- Discharge Diagnosis: Dizzy Discharge Disposition: Home Physician Attending: Kaiden Myers MD Vital Signs Most recent to oldest 1 2 3 [Reference Range]: Height 157.48 cm (08/09/14 10:38 PM) Blood Pressure [90-140/60-90 168/82 mmHg 140/81 mmHg 130/60 mmHg mmHg] *HI* (08/10/14 3:36 AM) (08/10/14 1:30 AM) (08/10/14 3:37 AM) Respiratory Rate [14-20 14 BRMIN 18 BRMIN 19 BRMIN BRMIN] (08/10/14 1:30 AM) (08/10/14 1:00 AM) (08/10/14 12:30 AM) Peripheral Pulse Rate [60-100 58 bpm bpm] *LOW* (08/09/14 10:38 PM) Weight 62.273 kg (08/09/14 10:38 PM) Body Mass Index 25.11 m2 (08/09/14 10:38 PM) Problem List No data available for this section Allergies, Adverse Reactions, Alerts Substance Reaction Severity Status NKDA Active Medications Antivert 12.5 mg oral tablet 12.5 mg=1 tab, PO, TID, PRN Dizziness, # 30 tab, 0 Refill(s) Start Date: 08/10/14 Stop Date: 08/20/14 Status: Orderedmeclizine 25 mg, 1 tab, Route: PO, Drug form: TAB, ONCE, Dosing Weight 62.273, kg, Priority: STAT, Start date:08/09/14 23:11:00, Stop date: 08/09/14 23:11:00 Notes: (Same as: Antivert) Start Date: 08/09/14 Stop Date: 08/10/14 Status: Completedmeclizine 25 mg, 1 tab, Route: PO, Drug form: TAB, ONCE, Dosing Weight 62.273, kg, Priority: STAT, Start date:08/10/14 0:13:00, Stop date: 08/10/14 0:13:00 Notes: (Same as: Antivert) Start Date: 08/10/14 Stop Date: 08/10/14 Status: OrderedZofran 4 mg, 2 mL, Route: IVP, Drug form: INJ, ONCE, Dosing Weight 62.273, kg, Priority : STAT, Start date: 08/09/14 23:11:00, Stop date: 08/09/14 23:11:00 Notes: (Same as: Zofran) MEDICATION WASTE Product Size: 4 mgProduct Wasted: ___ mg Start Date: 08/09/14 Stop Date: 08/10/14 Status: CompletedZofran ODT 4 mg, 1 tab, Route: PO, Drug form: TABDIS, ONCE, Dosing Weight 62.273, kg, Priority: STAT, Start date: 08/10/14 0:14:00, Stop date: 08/10/14 0:14:00 Notes: (Same as: Zofran ODT) Start Date: 08/10/14 Stop Date: 08/10/14 Status: CompletedZofran ODT 4 mg oral tablet, disintegrating 4 mg=1 tab, PO, BID, PRN Nausea and Vomiting, Dissolve tab under tongue, # 10 tab, 0 Refill(s) Special Instructions: Dissolve tab under tongue Start Date: 08/10/14 Stop Date: 08/15/14 Status: Ordered Results ELECTROLYTES Most recent to oldest [Reference Range]: 1 Sodium Lvl [135-145 mEq/L] 138 mEq/L (08/10/14 12:55 AM) Potassium Lvl [3.5-5.1 mEq/L] 3.8 mEq/L (08/10/14 12:55 AM) Chloride Lvl [95-109 mEq/L] 107 mEq/L (08/10/14 12:55 AM) CO2 [24-32 mEq/L] 25 mEq/L (08/10/14 12:55 AM) AGAP [10.0-20.0 mEq/L] 9.8 mEq/L *LOW* (08/10/14 AM) CHEM PANEL Most recent to oldest [Reference Range]: 1 Creatinine Lvl [0.5-1.4 mg/dL] 0.8 mg/dL (08/10/14:55 AM) eGFR 68 mL/min/1.73m2 1 *NA* (08/10/14 AM) BUN [7-22 mg/dL] 16 mg/dL (08/10/14:55 AM) B/C Ratio [6-25] 20 (08/10/14: AM) Glucose Lvl [70-99 mg/dL] 103 mg/dL 2 *HI* (08/10/14 AM) Total Protein [6.4-8.4 g/dL] 6.5 g/dL (08/10/1455 AM) Albumin Lvl [3.5-5.0 g/dL] 3.3 g/dL *LOW* (08/10/14: AM) Globulin [2.0-4.0 g/dL] 3.2 g/dL (08/10/14:55 AM) A/G Ratio [0.7-1.6] 1.0 (08/10/14:55 AM) Calcium Lvl [8.5-10.5 mg/dL] 8.5 mg/dL (08/10/14:55 AM) Phosphorus [2.5-4.5 mg/dL] 3.5 mg/dL (08/10/14 12:55 AM) Magnesium Lvl [1.8-2.4 mg/dL] 1.9 mg/dL (08/10/14:55 AM) ALT [0-65 unit/L] 16 unit/L (08/10/14:55 AM) AST [0-37 unit/L] 16 unit/L (08/10/14 12:55 AM) Alk Phos [39-136 unit/L] 54 unit/L (08/10/14 12:55 AM) Bili Total [0.2-1.3 mg/dL] 0.3 mg/dL (08/10/14 12:55 AM) Lipase Lvl [73-393 unit/L] 209 unit/L (08/10/14 12:55 AM) Ammonia [<=45.0 uMol/L] 21.0 uMol/L (08/10/14 12:55 AM) Lactic Acid Lvl [0.5-2.2 mMol/L] 0.5 mMol/L (08/10/14 12:55 AM) 1Result Comment: The eGFR is calculated using the CKD-EPI formula. In most young , healthy individualsthe eGFR will be >90 mL/min/1.73m2. The eGFR declines with age. An eGFR of 60-89 may be normal in some populations, particularly the elderly, for whom the CKD-EPI formula has not been extensively validated. Use of the eGFR is not recommended in the following populations: Individuals with unstable creatinine concentrations, including patients and those with serious co-morbid conditions. Patients with extremes in muscle mass or diet. The data above are obtained from the National Kidney Disease Education Program ( NKDEP) which additionally recommends that when the eGFR is used in patients with extremes of body mass index for purposesof drug dosing, the eGFR should be multiplied by the estimated BMI.2Interpretive Data: Adult reference range values reflect the clinical guidelines of the [place] [employer].CARDIAC ENZYMES Most recent to oldest [Reference Range]: 1 Total CK [12-191 unit/L] 95 unit/L (08/10/14 12:55 AM) CK MB [0.5-3.6 ng/mL] 0.7 ng/mL (08/10/14 12:55 AM) CK MB Index [0.0-2.5] 0.7 (08/10/14 12:55 AM) Troponin-I [0.00-0.40 ng/mL] <0.02 ng/mL (08/10/14 12:55 AM) URINE AND STOOL Most recent to oldest [Reference Range]: 1 UA Turbidity [Clear] Clear (08/10/14 1:44 AM) UA Color [Yellow] Yellow *NA* (08/10/14 1:44 AM) UA pH [5.0-8.0] 6.5 (08/10/14 1:44 AM) UA Spec Grav [<=1.030] 1.009 (08/10/14 1:44 AM) UA Glucose [Negative mg/dL] Negative mg/dL *NA* (08/10/14 1:44 AM) UA Blood [Negative] Negative (08/10/14 1:44 AM) UA Ketones [Negative mg/dL] Negative mg/dL *NA* (08/10/14 1:44 AM) UA Protein [Negative mg/dL] Negative mg/dL (08/10/14 1:44 AM) UA Urobilinogen [0.1-1.0 mg/dL] <=1.0 mg/dL *NA* (08/10/14 1:44 AM) UA Bili [Negative] Negative *NA* (08/10/14 1:44 AM) UA Leuk Est [Negative] Small *ABN* (08/10/14 1:44 AM) UA Nitrite [Negative] Negative (08/10/14 1:44 AM) UA WBC [0-5 /HPF] 2 /HPF (08/10/14 1:44 AM) UA RBC [0-2 /HPF] 2 /HPF (08/10/14 1:44 AM) UA Sq Epi [Few /LPF] Occasional /LPF *NA* (08/10/14 1:44 AM) UA Mucus [None Seen /LPF] Few /LPF *NA* (08/10/14 1:44 AM) HEMATOLOGY Most recent to oldest [Reference Range]: 1 WBC [3.7-10.4 K/CMM] 8.5 K/CMM (08/10/14 12:43 AM) RBC [4.20-5.40 M/CMM] 4.13 M/CMM *LOW* (08/10/14 12:43 AM) Hgb [12.0-16.0 g/dL] 12.8 g/dL (08/10/14 12:43 AM) Hct [36.0-48.0 %] 38.3 % (08/10/14 12:43 AM) MCV [80.0-98.0 fL] 92.7 fL (08/10/14 12:43 AM) MCH [27.0-31.0 pg] 31.0 pg (08/10/14 12:43 AM) MCHC [32.0-36.0 g/dL] 33.4 g/dL (08/10/14 12:43 AM) RDW [11.5-14.5 %] 13.5 % (08/10/14 12:43 AM) Platelet [133-450 K/CMM] 136 K/CMM (08/10/14 12:43 AM) MPV [7.4-10.4 fL] 7.9 fL (08/10/14 12:43 AM) Segs [45.0-75.0 %] 74.3 % (08/10/14 12:43 AM) Lymphocytes [20.0-40.0 %] 17.6 % *LOW* (08/10/14 12:43 AM) Monocytes [2.0-12.0 %] 6.6 % (08/10/14 12:43 AM) Eosinophils [0.0-4.0 %] 1.1 % (08/10/14 12:43 AM) Basophils [0.0-1.0 %] 0.4 % (08/10/14 12:43 AM) Segs-Bands # [1.5-8.1 K/CMM] 6.3 K/CMM (08/10/14 12:43 AM) Lymphocytes # [1.0-5.5 K/CMM] 1.5 K/CMM (08/10/14 12:43 AM) Monocytes # [0.0-0.8 K/CMM] 0.6 K/CMM (08/10/14 12:43 AM) Eosinophils # [0.0-0.5 K/CMM] 0.1 K/CMM (08/10/14 12:43 AM) Basophils # [0.0-0.2 K/CMM] 0.0 K/CMM (08/10/14 12:43 AM) Immunizations No data available for this section Procedures No data available for this section Social History Social History Type Response Smoking Status Never smoker; Exposure to Tobacco Smoke None; Cigarette Smoking Last 365 Days No; Reg Smoking Cessation Counseling No Assessment and Plan No data available for this section
--- NOTE | 2017-11-08 09:24 | RAD REPORT ---
EXAM DESCRIPTION: RAD - Neck Soft Tissue - 11/08/2017 9:10 am CLINICAL HISTORY: Pain, dysphagia COMPARISON: No comparisons FINDINGS: Prevertebral soft tissues are normal. Epiglottis and aryepiglottic folds are normal. Air c olumn is patent. No foreign body is seen.Mild carotid atherosclerosis. IMPRESSION: Negative study.
--- NOTE | 2017-11-08 11:37 | ER ---
Nurse's Notes [facility] Name: Annabelle Pena Age: 87 yrs Sex: Female : 1930 Arrival Date: 11/08/2017 Time: 08:16 Bed 3 Private MD: out of town, doctor Diagnosis: Tight tonsilar mass Presentation: 11/08 08:17 Presenting complaint: Patient states: "I feel like there is metal stuck in my throat aa5 and it's been there for about a week". Pt states "I felt it right away after eating Danish food about a week ago". Pt c/o pain to right side of throat. 08:17 Method Of Arrival: Ambulatory aa5 08:17 Transition of care: patient was not received from another setting of care. Onset of aa5 symptoms was October 2017. Risk Assessment: Do you want to hurt yourself or someone else? Patient reports no desire to harm self or others. Initial Sepsis Screen: Does the patient meet any 2 criteria? No. Patient's initial sepsis screen is negative. Does the patient have a suspected source of infection? No. Patient's initial sepsis screen is negative. Care prior to arrival: None. 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 - Social history:: Smoking status: Patient/guardian denies using tobacco. - Ebola Screening: : No symptoms or risks identified at this time. Screenin:46 Abuse screen: Denies threats or abuse. Nutritional screening: No deficits noted. ae1 Tuberculosis screening: No symptoms or risk factors identified. 12:24 Fall Risk None identified. ae1 Assessment: 08:40 General: Appears uncomfortable, well groomed, Behavior is cooperative, anxious. Pain: ae1 Complains of pain in right sternocleidomastoid. Neuro: Level of Consciousness is awake, alert, obeys commands, Oriented to person, place, time, situation. Cardiovascular: Heart tones S1 S2 present Patient's skin is warm and dry. Respiratory: Airway is patent Respiratory effort is even, unlabored, Respiratory pattern is regular, symmetrical, Breath sounds are clear bilaterally. GI: No signs and/or symptoms were reported involving the gastrointestinal system. Abdomen is round Abd is soft and non tender. : No signs and/or symptoms were reported regarding the genitourinary system. EENT: denies pain when swallowing, c/o neck pain. No visible swelling in pharynx. . Derm: Skin is pink, warm \\T\\ dry. Musculoskeletal: No signs and/or symptoms reported regarding the musculoskeletal system. 09:36 General: Behavior is anxious. Neuro: Level of Consciousness is awake, alert, obeys ae1 commands, Oriented to person, place, time, situation. Respiratory: Airway is patent. 10:18 General: Behavior is cooperative, anxious, Daughter at bedside . ae1 Vital Signs: 08:20 BP 179 / 100; Pulse 66; Resp 18 S; Temp 98.5(TE); Pulse Ox 96% on R/A; Weight 63.5 kg aa5 (R); Height 5 ft. 1 in. (154.94 cm) (R); Pain 5/10; 09:32 Pulse 62; Resp 18; Pulse Ox 99% on R/A; ae1 09:35 BP 158 / 92; Pulse 123; Resp 19; Pulse Ox 95% on R/A; ae1 09:52 Pulse 63; Resp 18; Pulse Ox 100% on R/A; ae1 10:58 BP 189 / 81; Pulse 65; Resp 19; Pulse Ox 99% on R/A; ae1 08:20 Body Mass Index 26.45 (63.50 kg, 154.94 cm) aa5 ED Course: 08:16 Patient arrived in ED. sb2 08:17 out of town, doctor is Private Physician. sb2 08:19 Arm band placed on Patient placed in an exam room, on a stretcher. aa5 08:27 Lorenzo Pierce, RN is Primary Nurse. ae1 08:28 Triage completed. aa5 08:38 Chadd Rosales MD is Attending Physician. kdr 08:47 Placed in gown. Bed in low position. Call light in reach. Side rails up X 1. Adult w/ ae1 patient. Pulse ox on. NIBP on. Warm blanket given. 09:07 Neck Soft Tissue XRAY In Process Unspecified. EDMS 09:08 X-ray completed. Patient tolerated procedure well. kw 09:58 Radiology exam delayed due to lab results not completed at this time. (BUN/Creatinine). vr 10:28 CT completed. Patient tolerated procedure well. Patient moved to CT via wheelchair. Patient moved back from CT. 10:30 CT Neck Angio In Process Unspecified. EDMS 11:36 Jessie Galicia MD is Referral Physician. kdr 11:44 No provider procedures requiring assistance completed. ae1 12:24 IV discontinued, intact, bleeding controlled, No redness/swelling at site. Pressure ae1 dressing applied. Administered Medications: No medications were administered Outcome: 11:37 Discharge ordered by . kdr 12:23 Discharged to home ambulatory, with family. ae1 12:23 Condition: stable 12:23 Discharge instructions given to patient, Instructed on discharge instructions, follow up and referral plans. Demonstrated understanding of instructions. 12:24 Patient left the ED. ae1 Signatures: Dispatcher [employer] EDMS Chadd Rosales MD MD kdr Jones, Susan sj Enid Dixon, RN RN Anna Duffy vr Milly Aguilera kw Lorenzo Pierce, RN RN ae1 Briana Feliciano
--- NOTE | 2017-11-08 11:37 | EDPHYS ---
Physician Documentation [facility] Name: Annabelle Pena Age: 87 yrs Sex: Female : 1930 Arrival Date: 11/08/2017 Time: 08:16 Bed 3 Private MD: out of town, doctor ED Physician Chadd Rosales HPI: 11/08 17:10 This 87 yrs old Female presents to ER via Ambulatory with complaints of kdr Foreign Body In Throat. 17:10 The patient or guardian complains of pain, that is acute. The symptoms are located kdr Posterior right pharynx. Onset: The symptoms/episode began/occurred gradually, 2 week(s) ago. Context: The problem was sustained at home, The neck injury/problem resulted from from unknown cause, Thought she may have swallowed something when eating two weeks ago. Associated signs and symptoms: Pertinent positives: This patient does not have any pertinent positive signs or symptoms associated with neck pain. Pertinent negatives: chills, constipation, fever, headache. The pain does not radiate. Modifying factors: The symptoms are alleviated by nothing. the symptoms are aggravated by nothing. Severity of symptoms: At their worst the symptoms were mild, in the emergency department the symptoms are unchanged. The patient has not experienced similar symptoms in the past. 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 - Social history:: Smoking status: Patient/guardian denies using tobacco. - Ebola Screening: : No symptoms or risks identified at this time. ROS: 17:10 Constitutional: Negative for fever, chills, and weight loss, Eyes: Negative for injury, kdr pain, redness, and discharge, Neck: Negative for injury, pain, and swelling, Cardiovascular: Negative for chest pain, palpitations, and edema, Respiratory: Negative for shortness of breath, cough, wheezing, and pleuritic chest pain, Abdomen/GI: Negative for abdominal pain, nausea, vomiting, diarrhea, and constipation, Back: Negative for injury and pain. 17:10 ENT: Positive for foreign body sensation, sore throat. Exam: 17:10 Constitutional: This is a well developed, well nourished patient who is awake, alert, kdr and in no acute distress. Head/Face: Normocephalic, atraumatic. Eyes: Pupils equal round and reactive to light, extra-ocular motions intact. Lids and lashes normal. Conjunctiva and sclera are non-icteric and not injected. Cornea within normal limits. Periorbital areas with no swelling, redness, or edema. Neck: Trachea midline, no thyromegaly or masses palpated, and no cervical lymphadenopathy. Supple, full range of motion without nuchal rigidity, or vertebral point tenderness. No Meningismus. Chest/axilla: Normal chest wall appearance and motion. Nontender with no deformity. No lesions are appreciated. Cardiovascular: Regular rate and rhythm with a normal S1 and S2. No gallops, murmurs, or rubs. Normal PMI, no JVD. No pulse deficits. Respiratory: Lungs have equal breath sounds bilaterally, clear to auscultation and percussion. No rales, rhonchi or wheezes noted. No increased work of breathing, no retractions or nasal flaring. Abdomen/GI: Soft, non-tender, with normal bowel sounds. No distension or tympany. No guarding or rebound. No evidence of tenderness throughout. 17:10 ENT: Posterior pharynx: peritonsillar mass, is noted on the right. Vital Signs: 08:20 BP 179 / 100; Pulse 66; Resp 18 S; Temp 98.5(TE); Pulse Ox 96% on R/A; Weight 63.5 kg aa5 (R); Height 5 ft. 1 in. (154.94 cm) (R); Pain 5/10; 09:32 Pulse 62; Resp 18; Pulse Ox 99% on R/A; ae1 09:35 BP 158 / 92; Pulse 123; Resp 19; Pulse Ox 95% on R/A; ae1 09:52 Pulse 63; Resp 18; Pulse Ox 100% on R/A; ae1 10:58 BP 189 / 81; Pulse 65; Resp 19; Pulse Ox 99% on R/A; ae1 08:20 Body Mass Index 26.45 (63.50 kg, 154.94 cm) aa5 MDM: 11:37 Patient medically screened. kdr 17:10 Data reviewed: vital signs, nurses notes, radiologic studies. Counseling: I had a kdr detailed discussion with the patient and/or guardian regarding: the historical points, exam findings, and any diagnostic results supporting the discharge/admit diagnosis, lab results, radiology results, the need for outpatient follow up. ED course: D/w patient importance of ENT follow-up evaluation and care. 11/08 08:39 Order name: Neck Soft Tissue XRAY; Complete Time: 09:48 kdr 11/08 09:54 Order name: CT Neck Angio kdr Administered Medications: No medications were administered Disposition: 11/08/17 11:37 Discharged to Home. Impression: Tight tonsilar mass. - Condition is Stable. - Blank Diagnosis Outline, Medication Reconciliation Form, Thank You Letter form. - Follow up: Jessie Galicia MD; When: 2 - 3 days; Reason: If symptoms return, Further diagnostic work-up, Recheck today's complaints, Continuance of care, Re-evaluation by your physician. - Problem is new. - Symptoms are unchanged. Signatures: Dispatcher [employer] EDMS Chadd Rosales MD MD kdr Enid Dixon RN RN aa5 Lorenzo Pierce RN RN ae1 Corrections: (The following items were deleted from the chart) 12:24 11:37 11/08/2017 11:37 Discharged to Home. Impression: Tight tonsilar mass. Condition ae1 is Stable. Forms are Medication Reconciliation Form, Thank You Letter, Antibiotic Education, Prescription Opioid Use. Follow up: Jessie Galicia; When: 2 - 3 days; Reason: If symptoms return, Further diagnostic work-up, Recheck today's complaints, Continuance of care, Re-evaluation by your physician. Problem is new. Symptoms are unchanged. kdr
--- NOTE | 2017-11-08 11:39 | RAD REPORT ---
EXAM DESCRIPTION: CT - Neck Angio - 11/08/2017 10:30 am CLINICAL HISTORY: upper right neck pain, infra posterior auricular pain COMPARISON: CT HEAD CSPINE MPR WO CONTRAST dated 01/14/2014; Neck Soft Tissue dated 11/08/2017 TECHNIQUE: CT angiography of the neck vessels was performed with MIPs. All CT scans are performed using dose optimization technique as appropriate and may include automated exposure control or mA/KV adjustment according to patient size. FINDINGS: A left aortic arch is identified with normal three vessel configuration of the great vesse ls. No significant flow abnormality is seen of the common carotid bilaterally. Atherosclerotic plaquing is seen involving both carotid bulbs, greater on the right. Plaquing on the right demonstrates mild narrowing of the carotid bulb, likely less than 50%. Normal flow is seen within both vertebral arteries. Irregular thickening is seen involving the palatine tonsils, greater on the right. A tonsillar mass i s possible in this region although asymmetric tonsillar hypertrophy is the favored diagnosis. No radi opaque foreign body is appreciated. The left piriform sinus is under aerated. IMPRESSION: No significant flow abnormality of the neck vessels is identified. Mild, less than 50%, narrowing of the right carotid bulb. Enlargement of the palatine tonsils are seen, greater on the right with an irregular and somewhat nod ular appearance. While this may be related to tonsillar hypertrophy, direct visualization is suggeste d to exclude a more aggressive process. No pathologic adenopathy seen in the neck. No radiopaque foreign body identified.
[2017-11-08 12:28] VITALS: TEMP 98.5
[2017-11-08 12:33] VITALS: BP 189/81; O2SAT 99
== END 2017-11-08 12:24 | disposition home or self-care (01) ==
LOC: ER 08:13
DX: D10.4 Benign neoplasm of tonsil (principal); E78.5 Hyperlipidemia, unspecified; E03.9 Hypothyroidism, unspecified; I25.2 Old myocardial infarction; Z95.818 Presence of other cardiac implants and grafts; Z79.01 Long term (current) use of anticoagulants
CPT/HCPCS: 70360; 70498; 99284; Q9967

== ENCOUNTER 2017-12-01 08:34 | Emergency (ER) | payer OTHER ==
--- OUTSIDE RECORDS SUMMARY | 2017-12-01 08:38 | XMS REPORT | Continuity of Care Document ---
:1930 Author Organization Interface Problems Problem Status Onset Classification Date Comments Source Date Reported Encounter for 07/06/19 10/04/2017 OP[facility] The screening 18 [place] mammogram for malignant neoplasm of breast Z13.820 - Active 06/20/19 OP[facility] The ENCOUNTER FOR 18 [place] SCREENING FOR OS Discharge 08/11/19 08/12/2014 The Diagnosis: Dizzy 15 [place] NAUSEA/ DIZZINESS Active 08/10/19 The 15 [place] Encounter for 10/04/2017 OPID The screening for [place] osteoporosis Loss of memory Active Problem 10/04/2017 Medical Group, [facility] [place] Dysuria Active Problem 10/04/2017 Medical Group, [facility] [place] History of CVA Active Problem 10/04/2017 Medical (<span Group, ID="[id number]" OP[facility] The >Confirmed</span> [place] ) History of NC Active Problem 10/04/2017 Medical (<span Group, ID="[id number]" OP[facility] The >Confirmed</span> [place] ) Hyperlipemia Active Problem 10/04/2017 Medical Group, [facility] [place] Hypothyroidism Active Problem 10/04/2017 Medical Group, [facility] [place] Insomnia Active Problem 10/04/2017 Medical Group, [facility] [place] Mitral valve Active Problem 10/04/2017 Medical disease Group, [facility] [place] Psoriasis Active Problem 10/04/2017 Medical Group, [facility] [place] Medications Medication Details Route Status Patient Ordering Order Source Instructions Provider Date predniSONE 20 mg 20 mg=1 tab, Active 08/12/ Medical oral tablet PO, Daily, X 2018 Group 5 day, # 5 tab, 0 Refill(s), Pharmacy: [facility]/pharmacy #[id number] Ciprofloxacin 500 mg=1 Active 08/12/ Medical 500 MG Oral tab, PO, 2018 Group Tablet [Cipro] Q12H, X 7 day, # 14 tab, 0 Refill(s), Pharmacy: [facility]/pharmacy #[id number] Ciprofloxacin 3 2 drp, BOTH No Longer Medical MG/ML Ophthalmic EYES, Q4H, X Active 2018 Group Solution 10 day, # 5 mL, 0 Refill(s), Pharmacy: [facility]/pharmacy #[id number] Trazodone See Active Medical Hydrochloride Instructions 2018 Group 100 MG Oral , TAKE 1 Tablet TABLET AT BEDTIME, # 90 tab, 1 Refill(s), Pharmacy: [facility] memantine 10 mg 10 mg=1 tab, Active Medical oral tablet PO, BID, # 2018 Group 180 tab, 0 Refill(s), Pharmacy: [facility] Mail Delivery levothyroxine 75 See Active Medical mcg (0.075 mg) Instructions 2018 Group oral tablet , TAKE 1 TABLET BY MOUTH EVERY DAY, # 90 tab, 1 Refill(s), Pharmacy: [facility] Mail [facility] DULoxetine 60 mg 60 mg=1 cap, Active Medical oral delayed PO, Daily, # 2018 Group release capsule 90 cap, 1 Refill(s), Pharmacy: [facility] Mail Delivery clopidogrel 75 See Active Medical mg oral tablet Instructions 2018 Group , TAKE 1 TABLET BY MOUTH EVERY DAY, # 90 tab, 1 Refill(s), Pharmacy: [facility] Mail Delivery atorvastatin 20 See Active Medical mg oral tablet Instructions 2018 Group , TAKE 1 TABLET AT BEDTIME, # 90 tab, 1 Refill(s), Pharmacy: [facility] Mail [facility] Ondansetron 4 MG 4 [...] mg, 1 Inactive The tab, Route: 2014 [place] PO, Drug form: TAB, ONCE, Dosing Weight 62.273, kg, Priority: STAT, Start date: 08/10/14 0:13:00, Stop date: 08/10/14 0:13:00Notes : (Same as: Antivert) Meclizine 25 mg, 1 No Longer The tab, Route: Active 2014 [place] PO, Drug form: TAB, ONCE, Dosing Weight 62.273, kg, Priority: STAT, Start date: 08/09/14 23:11:00, Stop date: 08/09/14 23:11:00Note s: (Same as: Antivert) Zofran 4 mg, 2 mL, No Longer The Route: IVP, Active 2014 [place] Drug form: INJ, ONCE, Dosing Weight 62.273, kg, Priority: STAT, Start date: 08/09/14 23:11:00, Stop date: 08/09/14 23:11:00Note s: (Same as: Zofran) MEDICATION WASTE Product Size: 4 mg Product Wasted: ___ mg Allergies, Adverse Reactions, Alerts Substance Category Reaction Severity Reaction Status Date Comments Source type Reported NKDA Assertion Drug Active [facility] allergy [place] Immunizations Immunization Date Given Site Status Last Updated Comments Source Results Order Name Results Value Reference Date Interpretation Comments Source Range Bone Bone Density 06/28 - [facility] Density DXA Dual - The DXA [employer] [facility] BONE DENSITY ASSESSMENT: 06/28/2017 Read by: Tamanna [...] is recommended. This exam was interpreted at [id number] at [facility]. Tamanna mendoza/rula:07/02/2017 15:32:35 Flight Coordinator(s): Shanna Sahu [facility] - OP Imaging Breast Breast Mammo 06/28 - [facility] Mammo Scrn Scrn APRIL /2017 - The APRIL incl incl CAD MA [place] CAD MA Read by: Leobardo Saravia Dictated [...] is recommended.(06/29/2018) [id number] Professional services are provided by the [facility]. Leobardo Saravia M.D. dt/penrad:07/01/2017 09:46:47 Flight Coordinator(s): Michelle Maza RT(R), [facility] - OP Imaging letter sent: BI-RADS 1/2 Dense Mammogram BI-RADS: 2 Benign URINE AND UA <=1.0 0.1 - 1.0 08/10 The STOOL Urobilinogen mg/dL /2014 [place] URINE AND UA Mucus Few /LPF None Seen 08/10 The STOOL /LPF /2014 [place] URINE AND UA WBC 2 /HPF 0 - 5 08/10 The STOOL /2014 [place] URINE AND UA RBC 2 /HPF 0 - 2 08/10 The STOOL /2014 [place] URINE AND UA Turbidity Clear Clear 08/10 The STOOL /2014 [place] (08/10/14 1:44 AM) URINE AND UA Bili Negative Negative 08/10 The STOOL [place] *NA* (08/10/14 1:44 AM) URINE AND UA Leuk Est Small Negative 08/10 The STOOL lands *ABN* (08/10/14 1:44 AM) URINE AND UA Sq Epi Occasional Few /LPF 08/10 The STOOL /LPF /2014 [place] URINE AND UA Blood Negative Negative 08/10 The STOOL [place] (08/10/14 1:44 AM) URINE AND UA Nitrite Negative Negative 08/10 The STOOL [place] (08/10/14 1:44 AM) URINE AND UA Color Yellow Yellow 08/10 The STOOL [place] *NA* (08/10/14 1:44 AM) URINE AND UA Protein Negative Negative 08/10 The STOOL mg/dL mg/dL [place] URINE AND UA pH 6.5 5.0 - 8.0 08/10 The [place] URINE AND UA Ketones Negative Negative 08/10 The STOOL mg/dL mg/dL /2014 [place] URINE AND UA Glucose Negative Negative 08/10 The STOOL mg/dL mg/dL [place] URINE AND UA Spec Grav 1.009 <=1.030 08/10 The STOOL [place] CARDIAC Total CK 95 unit/L 12 - 191 08/10 The [place] CARDIAC Troponin-I null 0.00 - 08/10 The ENZYMES 0.40 [place] CARDIAC CK MB 0.7 ng/mL 0.5 - 3.6 08/10 The ENZYMES [place] CARDIAC CK MB Index 0.7 0.0 - 2.5 08/10 The ENZYMES [place] CHEM PANEL Magnesium 1.9 mg/dL 1.8 - 2.4 08/10 The Lvl [place] CHEM PANEL Phosphorus 3.5 mg/dL 2.5 - 4.5 08/10 The [place] CHEM PANEL Lipase Lvl 209 unit/L 73 - 393 08/10 The [place] CHEM PANEL Ammonia 21.0 <=45.0 08/10 The umol/L uMol/L [place] CHEM PANEL Lactic Acid 0.5 mMol/L 0.5 - 2.2 08/10 MH The Lvl [place] CHEM PANEL eGFR 68 04/14 1Result Comment: [...] is not recommended in the following populations: [place] 3m2 Individuals with unstable creatinine concentrations, including [...] Phos 54 unit/L 39 - 136 08/10 [place] CHEM PANEL Bili Total 0.3 mg/dL 0.2 - 1.3 08/10 [place] CHEM PANEL B/C Ratio 20 6 - 25 08/10 [place] CHEM PANEL AGAP 9.8 meq/L 10.0 - 08/10 The 20.0 [place] CHEM PANEL A/G Ratio 1.0 0.7 - 1.6 08/10 [place] CHEM PANEL Globulin 3.2 g/dL 2.0 - 4.0 08/10 [place] CHEM PANEL Glucose Lvl 103 mg/dL 70 - 99 08/10 2Interpretive Data: Adult reference range values reflect the clinical guidelines of the [place] [employer]. [place] CHEM PANEL Creatinine 0.8 mg/dL 0.5 - 1.4 08/10 The Lvl [place] CHEM PANEL Chloride Lvl 107 meq/L 95 - 109 08/10 [place] CHEM PANEL CO2 25 meq/L 24 - 32 08/10 [place] CHEM PANEL Calcium Lvl 8.5 mg/dL 8.5 - 10.5 08/10 [place] CHEM PANEL AST 16 unit/L 0 - 37 08/10 [place] CHEM PANEL BUN 16 mg/dL 7 - 22 08/10 [place] CHEM PANEL Potassium 3.8 meq/L 3.5 - 5.1 08/10 The Lvl [place] CHEM PANEL Sodium Lvl 138 meq/L 135 - 145 08/10 The [place] CHEM PANEL Albumin Lvl 3.3 g/dL 3.5 - 5.0 08/10 The [place] CHEM PANEL Total 6.5 g/dL 6.4 - 8.4 08/10 The Protein [place] CHEM PANEL ALT 16 unit/L 0 - 65 08/10 The [place] HEMATOLOGY Basophils # 0.0 K/CMM 0.0 - 0.2 08/10 The [place] HEMATOLOGY Lymphocytes 1.5 K/CMM 1.0 - 5.5 08/10 The # [place] HEMATOLOGY Eosinophils 0.1 K/CMM 0.0 - 0.5 08/10 The # [place] HEMATOLOGY Monocytes # 0.6 K/CMM 0.0 - 0.8 08/10 The [place] HEMATOLOGY Segs-Bands # 6.3 K/CMM 1.5 - 8.1 08/10 The [place] HEMATOLOGY Segs 74.3 % 45.0 - 08/10 The 75.0 [place] HEMATOLOGY Monocytes 6.6 % 2.0 - 12.0 08/10 The [place] HEMATOLOGY Lymphocytes 17.6 % 20.0 - 08/10 The 40.0 [place] HEMATOLOGY Basophils 0.4 % 0.0 - 1.0 08/10 The [place] HEMATOLOGY Eosinophils 1.1 % 0.0 - 4.0 08/10 The [place] HEMATOLOGY MPV 7.9 fL 7.4 - 10.4 08/10 The [place] HEMATOLOGY Platelet 136 K/CMM 133 - 450 08/10 The [place] HEMATOLOGY Hct 38.3 % 36.0 - 08/10 The 48.0 [place] HEMATOLOGY MCV 92.7 fL 80.0 - 08/10 The 98.0 [place] HEMATOLOGY MCHC 33.4 g/dL 32.0 - 08/10 The 36.0 [place] HEMATOLOGY RDW 13.5 % 11.5 - 08/10 The 14. [place] HEMATOLOGY Hgb 12.8 g/dL 12.0 - 08/10 The 16.0 [place] HEMATOLOGY MCH 31.0 pg 27.0 - 08/10 The 31.0 [place] HEMATOLOGY RBC 4.13 M/CMM 4.20 - 08/10 The 5.40 [place] HEMATOLOGY WBC 8.5 K/CMM 3.7 - 10.4 08/10 [place] Vital Signs Vital Sign Value Date Comments [...] Medical Group Systolic (mm Hg) 168 08/10/2014 [place] Diastolic (mm Hg) 82 08/10/2014 [facility] Systolic (mm Hg) 140 08/10/2014 [facility] Diastolic (mm Hg) 81 08/10/2014 [facility] Respitory Rate 14 08/10/2014 [facility] Systolic (mm Hg) 130 08/10/2014 [facility] Diastolic (mm Hg) 60 08/10/2014 [facility] Respitory Rate 18 08/10/2014 [facility] Respitory Rate 19 08/10/2014 [facility] Height 157.48 cm 08/10/2014 [facility] Weight 62.273 08/10/2014 [facility] BMI Calculated 25.11 08/10/2014 [facility] Heart Rate 58 08/10/2014 [facility] Encounters Location Location Encounter Encounter Reason Attending ADM DC Status Source Details Type Number For Provider Date Date Visit [facility] [id number] Kaiden 08/10 08/10 [facility]2014 [facility] Out[facility] [id number] [place] [facility]/28 [facility] [id number] [place] 02/06 [facility] [id number] [place] 03/29 Active [facility] Outpatient [id number] [place] 05/17 Active [facility] BRONWYN Phillip Outpatient [id number] [place] 09/06 Active [facility] BRONWYN [facility] Outpatient [id number] [place] 09/20 Active [facility] BRONWYN [facility] Outpatient [id number] JOY 10/11 Active [facility] Outpatient [id number] [place] 11/07 Active [facility] Outpatient [id number] [place] 06/14 Active [facility] [id number] [place] 06/14 06/15 Primary [place] /2017 [facility] Outpatient [id number] [place] 06/28 06/29 [facility] Outpatient [place] [facility] Outpatient [id number] EMI 08/04 Active [facility] Phillip Outpatient [id number] [place] 08/12 [facility] [id number] [place] 08/12 08/13 Primary [place] /2017 [facility] Phone [id number] 08/12 08/14 MH Primary Message /2017 [facility] Phone [id number] 09/03 09/05 MH Primary Message /2017 Medical Care [facility] Phone [id number] 09/05 09/07 Primary Message /2017 Medical Care [facility] Procedures Procedure Code Date Perfomer Comments Source section [id number] Medical Group Hysterectomy [id number] Medical Group section [id number] [facility] [place] Hysterectomy [id number] [facility] [place]
[2017-12-01] MEDS ORDERED: AMOX/K CLAV 875 MG TAB ONE (09:32)
[2017-12-01] MEDS ORDERED: SMZ./TMP. 800/160 MG TABLET ONE (09:32)
[2017-12-01] MEDS ORDERED: CEFTRIAXONE 1000 MG/VIAL ONE (09:32)
--- NOTE | 2017-12-01 09:32 | ER ---
Nurse's Notes [facility] Name: Annabelle Pena Age: 87 yrs Sex: Female : 1930 Arrival Date: 12/01/2017 Time: 08:37 Bed 7 Private MD: out of town, doctor Diagnosis: Cystitis Presentation: 12/01 08:59 Presenting complaint: Patient states: I have pus in my urine, noticed it last night, iw also has pain and burning with urination, denies fever or chills, denies n/v. Transition of care: patient was not received from another setting of care. Onset of symptoms was November 30, 2017. Risk Assessment: Do you want to hurt yourself or someone else? Patient reports no desire to harm self or others. Initial Sepsis Screen: Does the patient meet any 2 criteria? No. Patient's initial sepsis screen is negative. Does the patient have a suspected source of infection? No. Patient's initial sepsis screen is negative. Care prior to arrival: None. 08:59 Method Of Arrival: Ambulatory iw 08:59 Acuity: RAQUEL 3 iw Historical: - Allergies: 09:00 NKA; iw - Home Meds: 09:00 atorvastatin 20 mg Oral tab 1 tab once daily [Active]; duloxetine 60 mg Oral cpDR 1 cap iw once daily [Active]; levothyroxine 75 mcg tab 1 tab once daily [Active]; momantine hcl 10 mg once daily [Active]; Plavix 75 mg Oral tab 1 tab once daily [Active]; trazodone 100 mg Oral tab 1 tab nightly [Active]; - PMHx: 09:00 "sleep issues"; Hyperlipidemia; Hypothyroidism; Myocardial infarction; iw - PSHx: 09:00 Heart stents; Appendectomy; Carpal Tunnel Repair; tumor removed from ovary; iw - Immunization history:: Adult Immunizations unknown. - Ebola Screening: : Patient negative for fever greater than or equal to 101.5 degrees Fahrenheit, and additional compatible Ebola Virus Disease symptoms Patient denies exposure to infectious person Patient denies travel to an Ebola-affected area in the 21 days before illness onset No symptoms or risks identified at this time. - Family history:: not pertinent. - Social history:: Smoking status: Patient/guardian denies using tobacco. Screenin:55 Abuse screen: Denies threats or abuse. Denies injuries from another. Nutritional jl7 screening: No deficits noted. Tuberculosis screening: No symptoms or risk factors identified. Fall Risk None identified. Assessment: 09:30 General: Appears in no apparent distress. uncomfortable, Behavior is calm, cooperative, jl7 appropriate for age. Pain: Complains of pain in pelvis Pain does not radiate. Pain currently is 3 out of 10 on a pain scale. at worst was 10 out of 10 on a pain scale. Quality of pain is described as burning, Is intermittent. Neuro: Level of Consciousness is awake, alert, obeys commands, Oriented to person, place, time, situation. Cardiovascular: Patient's skin is warm and dry. Respiratory: Airway is patent Respiratory effort is even, unlabored, Respiratory pattern is regular, symmetrical. GI: No signs and/or symptoms were reported involving the gastrointestinal system. : Reports burning with urination. Derm: Skin is pink, warm \\T\\ dry. 09:55 Reassessment: Pt on 15 min shot time then will be discharged. jl7 Vital Signs: 09:01 BP 113 / 95; Pulse 75; Resp 16; Temp 98.2(TE); Pulse Ox 97% on R/A; Weight 63.5 kg; iw Height 5 ft. 2 in. (157.48 cm); Pain 5/10; 09:55 BP 93 / 61; Pulse 71; Resp 16; Pulse Ox 96% on R/A; Pain 3/10; jl7 09:01 Body Mass Index 25.61 (63.50 kg, 157.48 cm) ED Course: 08:37 Patient arrived in ED. mr 08:37 out of town, doctor is Private Physician. mr 08:51 Benjamin Montalvo MD is Attending Physician. [facility] 08:55 Sergio Dey, TAYLOR is Primary Nurse. jl7 09:00 Triage completed. iw 09:01 Arm band placed on. iw 09:24 Urine Culture Sent. em 09:24 Urine Culture Sent. em 09:24 Urine collected: straight cath specimen, clear. Straight cath inserted, using sterile ag technique, 16 Fr. Specimen obtained. Patient tolerated well. 09:55 Patient has correct armband on for positive identification. Bed in low position. Call jl7 light in reach. Side rails up X 1. Pulse ox on. NIBP on. 09:55 No provider procedures requiring assistance completed. Patient did not have IV access jl7 during this emergency room visit. Administered Medications: 09:51 Drug: Rocephin (cefTRIAXone) 1 grams Route: IM; Site: left gluteus; jl7 10:10 Follow up: Response: No adverse reaction jl7 09:53 Drug: Augmentin 875 mg Route: PO; jl7 10:10 Follow up: Response: No adverse reaction jl7 09:53 Drug: Bactrim (160 mg-800 mg (DS) 1 tablet Route: PO; jl7 10:10 Follow up: Response: No adverse reaction jl7 Outcome: 09:31 Discharge ordered by . harry 10:09 Discharged to home ambulatory. jl7 10:09 Condition: stable 10:09 Discharge instructions given to patient, family, Instructed on discharge instructions, follow up and referral plans. medication usage, Demonstrated understanding of instructions, follow-up care, medications, Prescriptions given X 3. 10:10 Patient left the ED. jl7 Addendum: 12/04/2017 16:56 Addendum: Culture Results: Positive urine culture. Bacteria is resistant to, has i w intermediate sensitivity, or is not tested against prescribed antibiotics. Report given to MACY for further evaluation and then to fuel handler for follow up with patient. Phone call Attempt #1 Culture report was reviewed by Dr. Montalvo, pt states she is feeling better, faxed report to Dr. Singh in [place]. Signatures: Benjamin Montalvo MD MD cha Rivera, Maria mr Donald, Elliott, FIELD IRRIGATION WORKER FIELD IRRIGATION WORKER Grace Moreno, Sheela Braga RN, Jahala, RN RN jl7
--- NOTE | 2017-12-01 09:32 | EDPHYS ---
Physician Documentation [facility] Name: Annabelle Pena Age: 87 yrs Sex: Female : 1930 Arrival Date: 12/01/2017 Time: 08:37 Bed 7 Private MD: out of town, doctor ED Physician Benjamin Montalvo HPI: 12/01 09:09 This 87 yrs old Female presents to ER via Ambulatory with complaints of harry Urinary Problem. 09:09 The patient presents with urinary symptoms, dysuria, frequency, urgency. Onset: The harry symptoms/episode began/occurred 1 day(s) ago. Modifying factors: The symptoms are alleviated by nothing, the symptoms are aggravated by nothing. Associated signs and symptoms: The patient has no apparent associated signs or symptoms. Severity of symptoms: At their worst the symptoms were mild, moderate, in the emergency department the symptoms are unchanged. The patient is not sexually active. The patient has experienced similar episodes in the past, several times. Historical: - Allergies: 09:00 NKA; iw - Home Meds: 09:00 atorvastatin 20 mg Oral tab 1 tab once daily [Active]; duloxetine 60 mg Oral cpDR 1 cap iw once daily [Active]; levothyroxine 75 mcg tab 1 tab once daily [Active]; momantine hcl 10 mg once daily [Active]; Plavix 75 mg Oral tab 1 tab once daily [Active]; trazodone 100 mg Oral tab 1 tab nightly [Active]; - PMHx: 09:00 "sleep issues"; Hyperlipidemia; Hypothyroidism; Myocardial infarction; iw - PSHx: 09:00 Heart stents; Appendectomy; Carpal Tunnel Repair; tumor removed from ovary; iw - Immunization history:: Adult Immunizations unknown. - Ebola Screening: : Patient negative for fever greater than or equal to 101.5 degrees Fahrenheit, and additional compatible Ebola Virus Disease symptoms Patient denies exposure to infectious person Patient denies travel to an Ebola-affected area in the 21 days before illness onset No symptoms or risks identified at this time. - Family history:: not pertinent. - Social history:: Smoking status: Patient/guardian denies using tobacco. ROS: 09:09 Constitutional: Negative for fever, chills, and weight loss, Eyes: Negative for injury, harry pain, redness, and discharge, ENT: Negative for injury, pain, and discharge, Neck: Negative for injury, pain, and swelling, Cardiovascular: Negative for chest pain, palpitations, and edema, Respiratory: Negative for shortness of breath, cough, wheezing, and pleuritic chest pain, Abdomen/GI: Negative for abdominal pain, nausea, vomiting, diarrhea, and constipation, Back: Negative for injury and pain, MS/Extremity: Negative for injury and deformity, Skin: Negative for injury, rash, and discoloration, Neuro: Negative for headache, weakness, numbness, tingling, and seizure, Psych: Negative for depression, anxiety, suicide ideation, homicidal ideation, and hallucinations, Allergy/Immunology: Negative for hives, rash, and allergies, Endocrine: Negative for neck swelling, polydipsia, polyuria, polyphagia, and marked weight changes. 09:09 : Positive for urinary symptoms, urinary frequency, burning with urination, difficulty urinating. Exam: : Constitutional: This is a well developed, well nourished patient who is awake, alert, harry and in no acute distress. Head/Face: Normocephalic, atraumatic. Eyes: Pupils equal round and reactive to light, extra-ocular motions intact. Lids and lashes normal. Conjunctiva and sclera are non-icteric and not injected. Cornea within normal limits. Periorbital areas with no swelling, redness, or edema. ENT: Nares patent. No nasal discharge, no septal abnormalities noted. Tympanic membranes are normal and external auditory canals are clear. Oropharynx with no redness, swelling, or masses, exudates, or evidence of obstruction, uvula midline. Mucous membranes moist. Neck: Trachea midline, no thyromegaly or masses palpated, and no cervical lymphadenopathy. Supple, full range of motion without nuchal rigidity, or vertebral point tenderness. No Meningismus. Chest/axilla: Normal chest wall appearance and motion. Nontender with no deformity. No lesions are appreciated. Cardiovascular: Regular rate and rhythm with a normal S1 and S2. No gallops, murmurs, or rubs. Normal PMI, no JVD. No pulse deficits. Respiratory: Lungs have equal breath sounds bilaterally, clear to auscultation and percussion. No rales, rhonchi or wheezes noted. No increased work of breathing, no retractions or nasal flaring. Abdomen/GI: Soft, non-tender, with normal bowel sounds. No distension or tympany. No guarding or rebound. No evidence of tenderness throughout. Back: No spinal tenderness. No costovertebral tenderness. Full range of motion. Skin: Warm, dry with normal turgor. Normal color with no rashes, no lesions, and no evidence of cellulitis. MS/ Extremity: Pulses equal, no cyanosis. Neurovascular intact. Full, normal range of motion. Neuro: Awake and alert, GCS 15, oriented to person, place, time, and situation. Cranial nerves II-XII grossly intact. Motor strength 5/5 in all extremities. Sensory grossly intact. Cerebellar exam normal. Normal gait. Psych: Awake, alert, with orientation to person, place and time. Behavior, mood, and affect are within normal limits. 09:09 : CVA tenderness, is absent, Pelvic Exam: Bladder: is normal, Sexual behavior: the patient is not sexually active. Vital Signs: 09:01 BP 113 / 95; Pulse 75; Resp 16; Temp 98.2(TE); Pulse Ox 97% on R/A; Weight 63.5 kg; iw Height 5 ft. 2 in. (157.48 cm); Pain 5/10; 09:55 BP 93 / 61; Pulse 71; Resp 16; Pulse Ox 96% on R/A; Pain 3/10; jl7 09:01 Body Mass Index 25.61 (63.50 kg, 157.48 cm) iw MDM: 08:51 Patient medically screened. [facility] 12/01 09:09 Order name: Urine Culture [facility] 12/01 09:09 Order name: Urine Culture [facility] 12/01 09:25 Order name: Urine Dipstick--Ancillary (enter results) 12/01 09:09 Order name: Urine Dipstick-Ancillary (obtain specimen); Complete Time: 09:24 [facility] Administered Medications: 09:51 Drug: Rocephin (cefTRIAXone) 1 grams Route: IM; Site: left gluteus; jl7 10:10 Follow up: Response: No adverse reaction jl7 09:53 Drug: Augmentin 875 mg Route: PO; jl7 10:10 Follow up: Response: No adverse reaction jl7 09:53 Drug: Bactrim (160 mg-800 mg (DS) 1 tablet Route: PO; jl7 10:10 Follow up: Response: No adverse reaction jl7 Disposition: 12/01/17 09:31 Discharged to Home. Impression: Cystitis. - Condition is Stable. - Discharge Instructions: Dysuria, Urinary Tract Infection, Adult, Urinary Tract Infection, Adult, [id number]. - Prescriptions for Augmentin 875- 125 mg Oral Tablet - take 1 tablet by ORAL route every 12 hours for 10 days; 14 tablet. Pyridium 200 mg Oral Tablet - take 1 tablet by ORAL route every 8 hours for 2 days; 6 tablet. Bactrim DS 800- 160 mg Oral Tablet - take 1 tablet by ORAL route every 12 hours for 5 days; 10 tablet. - Medication Reconciliation Form, Thank You Letter, Antibiotic Education, Prescription Opioid Use form. - Follow up: Private Physician; When: 2 - 3 days; Reason: Recheck today's complaints, Continuance of care, Re-evaluation by your physician. - Problem is new. - Symptoms have improved. Signatures: Dispatcher [employer] Benjamin Lorenz MD MD cha Williams, Irene, RN RN iw Leal, Jahala, RN RN jl7 Corrections: (The following items were deleted from the chart) 10:10 09:31 12/01/2017 09:31 Discharged to Home. Impression: Cystitis. Condition is Stable. jl7 Discharge Instructions: Dysuria, Urinary Tract Infection, Adult, Urinary Tract Infection, Adult, [id number]-Gman. Prescriptions for Augmentin 875-125 mg Oral Tablet - take 1 tablet by ORAL route every 12 hours for 10 days; 14 tablet, Pyridium 200 mg Oral Tablet - take 1 tablet by ORAL route every 8 hours for 2 days; 6 tablet, Bactrim DS 800-160 mg Oral Tablet - take 1 tablet by ORAL route every 12 hours for 5 days; 10 tablet. and Forms are Medication Reconciliation Form, Thank You Letter, Antibiotic Education, Prescription Opioid Use. Follow up: Private Physician; When: 2 - 3 days; Reason: Recheck today's complaints, Continuance of care, Re-evaluation by your physician. Problem is new. Symptoms have improved. harry
[2017-12-01] MEDS ORDERED: WATER FOR INJ,STERILE 10 ML ONE (09:33)
[2017-12-01 09:42] LABS: Urine Blood 1+ (NEG); Urine Glucose NEGATIVE (NEG); Urine Protein 1+ (NEG); Urine Specific Gravity 1.015 (1.005-1.030)
[2017-12-01 10:16] VITALS: TEMP 98.2
[2017-12-01 10:17] VITALS: BP 93/61; O2SAT 96
== END 2017-12-01 10:10 | disposition home or self-care (01) ==
LOC: ER 08:34
DX: N30.90 Cystitis, unspecified without hematuria (principal); E78.5 Hyperlipidemia, unspecified; E03.9 Hypothyroidism, unspecified; I25.2 Old myocardial infarction
CPT/HCPCS: 51702; 81003; 87077; 87086; 87088; 87186; 96372; 99284